=== PATIENT | female | born 1975 | race Two or more races ===

== ENCOUNTER → 2016-06-06 | Outpatient (CLI) | payer BC ==
[~2016-06-06] MED LIST: AMLO5TAB2 PO; METO25TA5 PO; MYCO500T3 PO; SIMV-8 PO; TACR1CAP4 PO
[2016-06-06 16:37] LABS: Basophils # (auto) 0 uL; DEFINITIVE VIEW TRANSMISSION; Eosinophils # (auto) 0 uL; Eosinophils % (auto) 0.2 % (0.0-7.0); Hematocrit 30.5 % (36.0-46.0); Lymphocytes % (auto) 9.6 % (10.0-50.0); Mean Corpuscular Hgb Conc. 32.9 g/dL (32.0-36.0); Mean Corpuscular Volume 78.9 fL (80.0-100.0); Mean Platelet Volume 10.3 fL (7.4-10.4); Monocytes % (auto) 10.2 % (0.0-12.0); Neutrophils # (auto) 8.2 uL; Platelet Count (auto) 245 10^3/uL (140-450); White Blood Cell 10.2 10^3/uL (4.4-10.8)
[2016-06-06 16:57] LABS: Urine Bilirubin Negative (Negative); Urine Blood TRACE /uL (Negative); Urine Color Yellow (Yellow); Urine Glucose Normal (Normal); Urine Ketone Negative (Negative); Urine RBC 2 /hpf (0 - 4); Urine Squamous Epithelial Cell FEW /hpf (<5); Urine Urobilinogen Normal (Negative); Urine pH 6.5 (5.0-8.0)
[2016-06-06 16:59] LABS: Urine Nitrite POSITIVE (Negative)
[2016-06-06 17:01] LABS: BUN/Creatinine Ratio 12.9; Calcium 8.1 mg/dL (8.5-10.1); Potassium 3.6 mmol/L (3.5-5.1)
== END | disposition home or self-care (01) ==
LOC: LAB 16:23
PROVIDERS: ATTEND Internal Medicine
DX: N39.0 Urinary tract infection, site not specified (principal)
CPT/HCPCS: 36415; 80048; 81001; 85025; 87086

== ENCOUNTER 2016-06-09 09:43 | Inpatient (IN) | payer BC ==
[~2016-06-09] VITALS: Ht 154.9 cm; Wt 64.7 kg
[2016-06-09 11:19] LABS: Basophils # (auto) 0 uL; Basophils % (auto) 0.3 % (0.0-2.0); DEFINITIVE VIEW TRANSMISSION; Eosinophils # (auto) 0.1 uL; Eosinophils % (auto) 2.4 % (0.0-7.0); Hematocrit 31.7 % (36.0-46.0); Hemoglobin 10.3 g/dL (12.2-16.2); Lymphocytes % (auto) 17.8 % (10.0-50.0); Mean Corpuscular Hemoglobin 25.7 pg (28.0-32.0); Mean Corpuscular Hgb Conc. 32.6 g/dL (32.0-36.0); Mean Corpuscular Volume 78.9 fL (80.0-100.0); Mean Platelet Volume 11.3 fL (7.4-10.4); Monocytes # (auto) 0.4 uL; Monocytes % (auto) 7.9 % (0.0-12.0); Neutrophils % (auto) 71.6 % (37.0-80.0); Platelet Count (auto) 226 10^3/uL (140-450); SUSPECT VIEW TRANSMISSION; White Blood Cell 5.6 10^3/uL (4.4-10.8)
[2016-06-09 11:27] LABS: Albumin 3.4 g/dL (3.4-5.0); BUN/Creatinine Ratio 14.9; Bilirubin, Total 0.2 mg/dL (0.2-1.0); Calcium 8.8 mg/dL (8.5-10.1); Potassium 3.7 mmol/L (3.5-5.1); Total Protein 7.9 g/dL (6.4-8.2)
[2016-06-09] MEDS ORDERED: ERTAPENEM SOD INJ 1 GM in SODIUM CHL 0.9% 50 ML IV ONE (11:30)
[2016-06-09 12:08] VITALS: BP 139/86
[2016-06-09 13:34] LABS: Urine RBC None Seen /hpf (0 - 4)
[2016-06-09 14:10] LABS: Urine Bilirubin Negative (Negative); Urine Blood Negative /uL (Negative); Urine Glucose Normal (Normal); Urine Ketone Negative (Negative); Urine Nitrite Negative (Negative); Urine Squamous Epithelial Cell FEW /hpf (<5); Urine Urobilinogen Normal (Negative); Urine pH 6.5 (5.0-8.0)
[2016-06-09] MEDS: SODIUM CHLORIDE 0.9% 1,000 ML IV SCH (14:16)
[2016-06-09 14:39] LABS: Urine Color Straw (Yellow)
[2016-06-09] MEDS ORDERED: LIDOCAINE 1% HCL (LOCAL ANESTH.) INJ 20ML MDV ONE (15:32)
[2016-06-09 16:45] VITALS: BP 128/78
[2016-06-09] MEDS ORDERED: LIDOCAINE 1% HCL (LOCAL ANESTH.) INJ 20ML MDV ID ONE (17:15)
[2016-06-09 21:46] VITALS: BP 110/71
[2016-06-09] MEDS: SODIUM CHLOR 0.9% PF (SALINE LOCK) 10ML VIAL IV SCH (21:48)
[2016-06-09] MEDS: TACROLIMUS 1 MG CAP PO SCH (21:48)
[2016-06-09] MEDS: MYCOPHENOLATE 500 MG TAB PO SCH (21:48)
[2016-06-10] MEDS: SODIUM CHLORIDE 0.9% 1,000 ML IV SCH (01:08)
[2016-06-10 05:12] VITALS: BP 108/66
[2016-06-10 05:40] LABS: BUN/Creatinine Ratio 17.2; Calcium 7.7 mg/dL (8.5-10.1); Potassium 4.3 mmol/L (3.5-5.1)
[2016-06-10 09:00] VITALS: BP 123/71
[2016-06-10] MEDS: TACROLIMUS 1 MG CAP PO SCH (09:56)
[2016-06-10] MEDS: SODIUM CHLOR 0.9% PF (SALINE LOCK) 10ML VIAL IV SCH (09:56)
[2016-06-10] MEDS: MYCOPHENOLATE 500 MG TAB PO SCH (09:56)
[2016-06-10] MEDS ORDERED: ERTAPENEM SOD INJ 1 GM in SODIUM CHL 0.9% 50 ML IV SCH (10:00)
[2016-06-10 10:59] VITALS: BP 123/71
== END 2016-06-10 12:45 | disposition home health service (06) | DRG 690 ==
LOC: ER 09:47 → EAST 09:48
PROVIDERS: ADMIT Internal Medicine; ATTEND Internal Medicine
PROC: 02HV33Z Insertion of Infusion Device into Superior Vena Cava, Percutaneous Approach (ICD-10-PCS; principal; 2016-06-09)
DX: N39.0 Urinary tract infection, site not specified (principal); Z94.0 Kidney transplant status; B96.20 Unspecified Escherichia coli [E. coli] as the cause of diseases classified elsewhere; N18.3 Chronic kidney disease, stage 3 (moderate); Z16.12 Extended spectrum beta lactamase (ESBL) resistance
CPT/HCPCS: 36415; 36569; 71010; 80048; 80053; 81001; 83605; 84702; 85025; 87040; J1335; J2001; J7507; J7517

== ENCOUNTER → 2016-06-15 | Outpatient (CLI) | payer BC ==
[2016-06-15 13:05] LABS: Urine RBC None Seen /hpf (0 - 4)
[2016-06-15 13:08] LABS: Basophils # (auto) 0 uL; Basophils % (auto) 0.6 % (0.0-2.0); DEFINITIVE VIEW TRANSMISSION; Eosinophils # (auto) 0.1 uL; Eosinophils % (auto) 1.6 % (0.0-7.0); Hemoglobin 10.5 g/dL (12.2-16.2); Lymphocytes # (auto) 1.6 uL; Mean Corpuscular Hemoglobin 25.4 pg (28.0-32.0); Mean Corpuscular Hgb Conc. 32.7 g/dL (32.0-36.0); Mean Corpuscular Volume 77.6 fL (80.0-100.0); Mean Platelet Volume 10.4 fL (7.4-10.4); Monocytes # (auto) 0.7 uL; Monocytes % (auto) 7.7 % (0.0-12.0); Neutrophils # (auto) 6.2 uL; Neutrophils % (auto) 72.1 % (37.0-80.0); Platelet Count (auto) 352 10^3/uL (140-450); Red Cell Distribution Width 15.8 % (11.6-16.0); White Blood Cell 8.6 10^3/uL (4.4-10.8)
[2016-06-15 13:29] LABS: BUN/Creatinine Ratio 17.1; Calcium 9.1 mg/dL (8.5-10.1)
[2016-06-15 13:33] LABS: Urine Bilirubin Negative (Negative); Urine Blood Negative /uL (Negative); Urine Glucose Normal (Normal); Urine Ketone Negative (Negative); Urine Nitrite Negative (Negative); Urine Urobilinogen Normal (Negative)
[2016-06-15 13:34] LABS: Urine Color Straw (Yellow)
== END | disposition home or self-care (01) ==
LOC: LAB 11:53
PROVIDERS: ATTEND Internal Medicine
DX: G71.0 Muscular dystrophy (principal)
CPT/HCPCS: 36415; 80048; 81001; 85025; 87086

== ENCOUNTER → 2016-06-27 | Outpatient (CLI) | payer BC ==
[2016-06-27 09:40] LABS: Urine Bilirubin Negative (Negative); Urine Blood Negative /uL (Negative); Urine Color Yellow (Yellow); Urine Glucose Normal (Normal); Urine Ketone Negative (Negative); Urine Nitrite Negative (Negative); Urine RBC 1 /hpf (0 - 4); Urine Squamous Epithelial Cell FEW /hpf (<5); Urine Urobilinogen Normal (Negative); Urine pH 5.5 (5.0-8.0)
== END | disposition home or self-care (01) ==
LOC: LAB 08:19
PROVIDERS: ATTEND Internal Medicine
DX: N39.0 Urinary tract infection, site not specified (principal)
CPT/HCPCS: 81001; 87086

== ENCOUNTER → 2017-06-05 | Outpatient (CLI) | payer BC ==
[2017-06-05 12:36] LABS: Basophils # (auto) 0 uL; Lymphocytes # (auto) 1.6 uL; Monocytes # (auto) 0.5 uL; Neutrophils # (auto) 4.2 uL; Nucleated Red Blood Cells % 0.1 %
[2017-06-05 12:38] LABS: Basophils % (auto) 0.6 % (0.0-2.0); Eosinophils # (auto) 0.1 uL; Eosinophils % (auto) 2.2 % (0.0-7.0); Hematocrit 25.2 % (36.0-46.0); Hemoglobin 7.9 g/dL (12.2-16.2); Lymphocytes % (auto) 25.1 % (10.0-50.0); Mean Corpuscular Hemoglobin 23.3 pg (28.0-32.0); Mean Corpuscular Hgb Conc. 31.4 g/dL (32.0-36.0); Mean Corpuscular Volume 74.1 fL (80.0-100.0); Monocytes % (auto) 8.4 % (0.0-12.0); Neutrophils % (auto) 63.7 % (37.0-80.0); Platelet Count (auto) 311 10^3/uL (140-450); Red Blood Cells 3.41 10^6/uL (4.0-5.20); Red Cell Distribution Width 16.2 % (11.8-14.3); White Blood Cell 6.5 10^3/uL (4.4-10.8)
[2017-06-05 12:48] LABS: Urine Bacteria NONE SEEN /hpf (None Seen); Urine Blood Negative /uL (Negative); Urine Hyaline Cast FEW /lpf (0 - 2); Urine Mucus FEW (None Seen); Urine Specific Gravity 1.008 (1.001-1.035); Urine WBC <1 /hpf (0 - 5)
[2017-06-05 13:05] LABS: Albumin 3.9 g/dL (3.4-5.0); BUN/Creatinine Ratio 20.7; Bilirubin, Total 0.4 mg/dL (0.2-1.0); Calcium 8.5 mg/dL (8.5-10.1); Phosphorus 2.4 mg/dL (2.5-4.90); Potassium 3.8 mmol/L (3.5-5.1); Uric Acid 4.7 mg/dL (2.6-6.0)
== END | disposition home or self-care (01) ==
LOC: LAB 11:02
PROVIDERS: ATTEND Internal Medicine Nephrology
DX: N18.3 Chronic kidney disease, stage 3 (moderate) (principal); D63.1 Anemia in chronic kidney disease; E21.3 Hyperparathyroidism, unspecified; E78.5 Hyperlipidemia, unspecified; M10.9 Gout, unspecified; R80.9 Proteinuria, unspecified; E55.9 Vitamin D deficiency, unspecified; Z94.0 Kidney transplant status
CPT/HCPCS: 36415; 80053; 80069; 80197; 81001; 82306; 82570; 83970; 84156; 84550; 85025

== ENCOUNTER 2017-09-08 19:16 | Emergency (ER) | payer BC ==
[~2017-09-08] VITALS: Ht 152.4 cm; Wt 63.0 kg
[2017-09-08 19:26] VITALS: BP 136/92
== END 2017-09-08 21:54 | disposition home or self-care (01) ==
LOC: ER 19:16
DX: S33.5XXA Sprain of ligaments of lumbar spine, initial encounter (principal); S13.9XXA Sprain of joints and ligaments of unspecified parts of neck, initial encounter; N18.9 Chronic kidney disease, unspecified; Z94.0 Kidney transplant status; V43.52XA Car driver injured in collision with other type car in traffic accident, initial encounter; Y93.89 Activity, other specified; Y99.8 Other external cause status; Y92.410 Unspecified street and highway as the place of occurrence of the external cause
CPT/HCPCS: 72125; 72128; 72131; 73120

== ENCOUNTER 2018-02-21 19:40 | Emergency (ER) | payer BC ==
[~2018-02-21] VITALS: Ht 154.9 cm; Wt 63.5 kg
[~2018-02-21 19:40] MED LIST changes: +AMLO5TAB13 PO; -AMLO5TAB2 PO
[2018-02-21 19:49] VITALS: BP 167/95
[2018-02-21 20:54] LABS: Basophils # (auto) 0.1 uL; Basophils % (auto) 0.7 % (0.0-2.0); Eosinophils # (auto) 0.1 uL; Eosinophils % (auto) 1.3 % (0.0-7.0); Hematocrit 34.1 % (36.0-46.0); Hemoglobin 11.1 g/dL (12.2-16.2); Lymphocytes # (auto) 1.6 uL; Lymphocytes % (auto) 18.8 % (10.0-50.0); Mean Corpuscular Hemoglobin 29.1 pg (28.0-32.0); Mean Corpuscular Hgb Conc. 32.7 g/dL (32.0-36.0); Mean Corpuscular Volume 89.1 fL (80.0-100.0); Monocytes # (auto) 0.6 uL; Monocytes % (auto) 6.9 % (0.0-12.0); Neutrophils # (auto) 6.1 uL; Neutrophils % (auto) 72.3 % (37.0-80.0); Platelet Count (auto) 342 10^3/uL (140-450); Red Blood Cells 3.82 10^6/uL (4.0-5.20); Red Cell Distribution Width 12.6 % (11.8-14.3); White Blood Cell 8.5 10^3/uL (4.4-10.8)
[2018-02-21 21:08] LABS: Albumin 3.8 g/dL (3.4-5.0); Calcium 8.5 mg/dL (8.5-10.1); Potassium 3.9 mmol/L (3.5-5.1)
[2018-02-21 21:11] LABS: BUN/Creatinine Ratio 22.6; Bilirubin, Total 0.2 mg/dL (0.2-1.0); Total Protein 8.1 g/dL (6.4-8.2)
[2018-02-21 21:46] LABS: Urine Bacteria FEW /hpf (None Seen); Urine Blood Negative /uL (Negative); Urine Specific Gravity 1.007 (1.001-1.035); Urine WBC 1 /hpf (0 - 5)
== END 2018-02-21 21:38 | disposition home or self-care (01) ==
LOC: ER 19:40 → EEVIPCON 19:40 → ER 21:38
DX: R22.1 Localized swelling, mass and lump, neck (principal); N18.9 Chronic kidney disease, unspecified
CPT/HCPCS: 36415; 76536; 80053; 81001; 84443; 85025; 94761

== ENCOUNTER → 2018-03-20 | Outpatient (CLI) | payer BC | END | disposition home or self-care (01) | LOC: LAB 09:58 | PROVIDERS: ATTEND Internal Medicine | DX: E04.1 Nontoxic single thyroid nodule (principal) | CPT/HCPCS: 86376; 86800 ==

== ENCOUNTER → 2018-03-20 | Outpatient (CLI) | payer BC | END | disposition home or self-care (01) | LOC: XYW 10:17 | PROVIDERS: ATTEND Internal Medicine | DX: E04.1 Nontoxic single thyroid nodule (principal) | CPT/HCPCS: 78014; A9516 ==

== ENCOUNTER → 2018-05-02 | Outpatient (CLI) | payer BC | END | disposition home or self-care (01) | LOC: EEVIPCON → XYW 08:50 | PROVIDERS: ATTEND Surgery | DX: Z01.818 Encounter for other preprocedural examination (principal); Z94.0 Kidney transplant status | CPT/HCPCS: 93306 ==

== ENCOUNTER 2018-05-29 06:16 | Inpatient (IN) | payer BC ==
[2018-05-27 11:56] LABS: Basophils # (auto) 0 uL; Basophils % (auto) 0.7 % (0.0-2.0); Eosinophils # (auto) 0.1 uL; Hemoglobin 10.9 g/dL (12.2-16.2); Lymphocytes # (auto) 1.2 uL; Monocytes # (auto) 0.6 uL; White Blood Cell 5.9 10^3/uL (4.4-10.8)
[2018-05-27 11:57] LABS: Eosinophils % (auto) 1.3 % (0.0-7.0); Hematocrit 34.3 % (36.0-46.0); Mean Corpuscular Hemoglobin 26.4 pg (28.0-32.0); Mean Corpuscular Hgb Conc. 31.9 g/dL (32.0-36.0); Mean Corpuscular Volume 82.7 fL (80.0-100.0); Monocytes % (auto) 10.6 % (0.0-12.0); Neutrophils # (auto) 3.9 uL; Neutrophils % (auto) 66.4 % (37.0-80.0); Platelet Count (auto) 307 10^3/uL (140-450); Red Blood Cells 4.15 10^6/uL (4.0-5.20)
[2018-05-27 12:13] LABS: INR 0.94 (0.9-1.15); Partial Thromboplastin Time 28.5 sec (23.78-33.04); Prothrombin Time 10.1 sec (9.27-12.13)
[2018-05-27 12:17] LABS: Urine Bacteria NONE SEEN /hpf (None Seen); Urine Blood Negative /uL (Negative); Urine Specific Gravity 1.013 (1.001-1.035); Urine WBC 1 /hpf (0 - 5)
[2018-05-27 12:20] LABS: Potassium 4.6 mmol/L (3.5-5.1)
[2018-05-27 12:27] LABS: Albumin 4.2 g/dL (3.4-5.0); BUN/Creatinine Ratio 15.3; Bilirubin, Total 0.5 mg/dL (0.2-1.0); Calcium 9.4 mg/dL (8.5-10.1); Total Protein 8.4 g/dL (6.4-8.2)
[~2018-05-29] VITALS: Ht 154.9 cm; Wt 68.8 kg
[~2018-05-29 06:16] MED LIST changes: -AMLO5TAB13 PO; +CHOL500023 PO; -METO25TA5 PO; +MYCO500T PO; -MYCO500T3 PO; -SIMV-8 PO
[2018-05-29] MEDS ORDERED: ceFAZolin 1GM/50ML 50 ML IV ONE (07:00)
[2018-05-29] MEDS ORDERED: ceFAZolin 1GM VL ONE (07:17)
[2018-05-29] MEDS ORDERED: MEPERIDINE HCL (50 MG/ML) 1 ML VIAL ONE (07:41)
[2018-05-29] MEDS ORDERED: MIDAZOLAM HCL 1MG/1ML-2 ML VIAL ONE (07:41)
[2018-05-29] MEDS ORDERED: fentaNYL CITRATE 100 MCG/2 ML VL ONE ×2 (07:41→08:31)
[2018-05-29] MEDS ORDERED: ePHEDrine SULFATE 50 MG/ML AMP IV PRN (07:45)
[2018-05-29] MEDS ORDERED: HYDROmorphone HCL 2 MG/ML VL IV PRN ×2 (07:45→13:00)
[2018-05-29] MEDS ORDERED: MIDAZOLAM HCL 1MG/1ML-2 ML VIAL IV PRN (07:45)
[2018-05-29] MEDS ORDERED: MORPHINE SULFATE 4 MG/ML SYR/VIAL IV PRN ×2 (07:45→13:15)
[2018-05-29] MEDS ORDERED: LABETALOL HCL 5 MG/ML 4ML SYRINGE IV PRN (07:45)
[2018-05-29] MEDS ORDERED: ONDANSETRON HCL 4 MG/2 ML VIAL IV ONE (07:45)
[2018-05-29] MEDS ORDERED: KETOROLAC TROMETH 30 MG/ML 1ML VIAL IV ONE (07:45)
[2018-05-29] MEDS ORDERED: DEXAMETHASONE SOD PHOS 10MG/1ML VIAL INJ ONE (07:48)
[2018-05-29] MEDS ORDERED: PROPOFOL 10 MG/ML 20 ML IV ONE (07:48)
[2018-05-29] MEDS ORDERED: MORPHINE SULFATE 4 MG/ML SYR/VIAL IV ONE (08:00)
[2018-05-29] MEDS: BUPIVACAINE W/ EPINEPH 0.25% INJ 50ML MDV ONE (08:14)
[2018-05-29] MEDS ORDERED: ROCURONIUM 10MG/ML 10ML VIAL IV ONE (08:47)
[2018-05-29] MEDS ORDERED: ONDANSETRON HCL 4 MG/2 ML VIAL ONE (08:51)
[2018-05-29] MEDS ORDERED: LABETALOL HCL 5 MG/ML 4ML SYRINGE IV ONE (10:54)
[2018-05-29] MEDS ORDERED: ONDANSETRON HCL 4 MG/2 ML VIAL IV PRN (13:00)
[2018-05-29] MEDS ORDERED: NITROGLYCERIN 0.4 MG SL TAB SL PRN (13:15)
[2018-05-29] MEDS ORDERED: LABETALOL HCL 5 MG/ML ML 20ML VIAL IV PRN (13:15)
--- NOTE | 2018-05-29 19:35 | NUR ---
Admit to [facility] admitted to [facility] from PACU post thyroidectomy via bed on biofuels product manager, and portable 02. Patient transferred to bed, connected to unit monitoring and oxygen, and weighed by bedscale. Patient has clean, dry and intact dressing in the anterior neck with steri-strip, alert and oriented to Rufina Davila, primary RN, unit, room, bed, and unit policies regarding patient care and visiting hours. IVF in the right forearm patent and intact. All questions and concerns addressed, patient verbalized understanding. Safety and comfort provided. NOTE:IVF in the right forearm patent and intact, MRSA swab in the nose done and sent to lab.
[2018-05-29] MEDS ORDERED: THROAT LOZENGES(CEPASTAT) MT PRN (22:00)
[2018-05-29] MEDS: ceFAZolin 1GM/50ML 50 ML IV SCH ×2 (22:00→22:17)
[2018-05-29] MEDS: TACROLIMUS 1 MG CAP PO SCH (22:18)
[2018-05-29] MEDS: MYCOPHENOLATE 500 MG TAB PO SCH (22:19)
[2018-05-29] MEDS: D5W/SOD CHL 0.45%/KCL 20MEQ 1,000 ML IV SCH (23:30)
[2018-05-29 23:38] VITALS: BP 144/98
[2018-05-30] MEDS: HYDROcodone-ACET 7.5/325MG TAB PO PRN ×2 (02:00→08:25)
--- NOTE | 2018-05-30 02:00 | NUR ---
PAIN: Pt states having pain at incision site and in throat at level 6/10. Offered pt pain med and pt agreed to take Columbus. Pt medicated w/ Columbus 7.5/325mg as per order. To continue to monitor pt.
--- NOTE | 2018-05-30 05:00 | NUR ---
MORNING CARE ASSISTED WITH PARTIAL SPONGE BATH AND PT DID ORAL CARE. PARTIAL LINEN AND GOWN CHANGED.
[2018-05-30 05:01] LABS: Basophils # (auto) 0 uL; Basophils % (auto) 0.1 % (0.0-2.0); Eosinophils # (auto) 0 uL; Hematocrit 25.9 % (36.0-46.0); Hemoglobin 8.6 g/dL (12.2-16.2); Lymphocytes # (auto) 1.3 uL; Lymphocytes % (auto) 13.4 % (10.0-50.0); Mean Corpuscular Hemoglobin 27.3 pg (28.0-32.0); Mean Corpuscular Hgb Conc. 33.4 g/dL (32.0-36.0); Monocytes # (auto) 1.1 uL; Monocytes % (auto) 11.8 % (0.0-12.0); Neutrophils # (auto) 7.1 uL; Neutrophils % (auto) 74.7 % (37.0-80.0); Platelet Count (auto) 239 10^3/uL (140-450); Red Blood Cells 3.16 10^6/uL (4.0-5.20); Red Cell Distribution Width 15.1 % (11.8-14.3); White Blood Cell 9.5 10^3/uL (4.4-10.8)
[2018-05-30 05:23] LABS: Calcium 7.8 mg/dL (8.5-10.1); Potassium 4.4 mmol/L (3.5-5.1)
[2018-05-30 05:26] LABS: BUN/Creatinine Ratio 16.4; Bilirubin, Total 0.3 mg/dL (0.2-1.0)
[2018-05-30] MEDS: ceFAZolin 1GM/50ML 50 ML IV SCH ×2 (06:20→14:00)
--- NOTE | 2018-05-30 07:10 | NUR ---
CLOSING SHIFT NOTE RESTING ON BED WITH NO SIGNS OF DISTRESS. REPORT GIVEN TO J LUIS GRIFFITH.
[2018-05-30 08:00] VITALS: BP 129/98
[2018-05-30] MEDS ORDERED: PNEUMOCOCCAL VACC POLYS 25 MCG/0.5 ML VIAL IM ONE (08:00)
--- NOTE | 2018-05-30 08:00 | NUR ---
REPORT REPORT RECEIVED FROM [facility] SHIFT NURSE. PT SITTING UP IN BED, NO DISTRESS NOTED, ON ROOM AIR. INCISION TO ANTERIOR NECK STERI-STRIPS NOTED INTACT. VOICE SLIGHTLY COURSE. PT STATING SHE HAS PAIN 5/10 TO INCISIONAL AREA. PRN NORCO GIVEN WITHOUT ANY DIFFICULTY SWALLOWING. SEE PHYSICAL ASSESSMENT.
[2018-05-30] MEDS: BUPIVACAINE W/ EPINEPH 0.25% INJ 50ML MDV ONE (08:15)
[2018-05-30] MEDS: D5W/SOD CHL 0.45%/KCL 20MEQ 1,000 ML IV SCH (08:18)
--- NOTE | 2018-05-30 09:00 | NUR ---
INCENTIVE SPIROMETER PATIENT PROVIDED WITH I.S, EDUCATED ON PROPER USE AND REASONING. PT VERBALIZED UNDERSTANDING AND WAS ABLE TO PERFORM PROPER RETURN DEMONSTRATION. PT REACHING 1500ML DURING INSPIRATION.
[2018-05-30] MEDS: MYCOPHENOLATE 500 MG TAB PO SCH (10:45)
[2018-05-30] MEDS: TACROLIMUS 1 MG CAP PO SCH (10:45)
--- NOTE | 2018-05-30 11:00 | NUR ---
TRANSFER TO BED 207 REPORT GIVEN TO NOC NURSE. UPDATED ON PATIENT STATUS AND PLAN OF CARE. PT TAKEN TO ROOM 207 VIA AMBULATION WITHOUT DIFFICULTY WITH PRIMARY RN. ALL BELONGINGS IN PLACE. FAMILY AT BEDSIDE AWARE.
--- NOTE | 2018-05-30 11:05 | NUR ---
TELEMETRY DOWNGRADE TRANSFER FROM [facility] admitted to Telemetry unit after SBAR received. Patient oriented to EVELIA PANG RN primary RN, unit, room, bed, and unit policies regarding patient care and visiting hours. Patient now on continuous telemetry monitoring, tele box # and telemetry reading on arrival to unit is []. Patient placed on bedside oxygen, weighed by bedscale and encouraged to call if they need something. All questions and concerns addressed, patient verbalized understanding. Note: [] Addendum: 05/30/18 at 1202 by EVELIA PANG RN RN TELEMETRY DOWNGRADE TRANSFER FROM [facility] admitted to Telemetry unit after SBAR received. Patient oriented to EVELIA PANG RN primary RN, unit, room, bed, and unit policies regarding patient care and visiting hours. Patient now on continuous telemetry monitoring, telemetry reading on arrival to unit is NORMAL SINUS RHYTHM of 85 bpm. Patient encouraged to call if they need something. All questions and concerns addressed, patient verbalized understanding.
--- NOTE | 2018-05-30 11:30 | NUR ---
DR. FRAZIER AT BEDSIDE. NEW ORDERS RECEIVED.
[2018-05-30 12:17] VITALS: BP 148/99
--- NOTE | 2018-05-30 13:55 | NUR ---
Discharge instructions given as ordered. Encourage to follow up with PMD as instructed. All questions and concerns addressed. Patient verbalized understanding. Medication reconciliation form completed and copy given to patient. IV removed with catheter intact, pressure dressing applied. Telemetry unit returned to [facility]. Patient taken down stairs to pharmacy via wheelchair with all personal belongings, accompanied by staff and family member. No distress noted at time of departure.
== END 2018-05-30 13:45 | disposition home or self-care (01) | DRG 626 ==
LOC: SUR 06:16 → DOU IN ICU 20:01 → TELE-CENTR 05-30 11:00
PROVIDERS: ADMIT Surgery; ATTEND Internal Medicine
PROC: 0GBH0ZZ Excision of Right Thyroid Gland Lobe, Open Approach (ICD-10-PCS; 2018-05-29)
PROC: 0GBG0ZZ Excision of Left Thyroid Gland Lobe, Open Approach (ICD-10-PCS; principal; 2018-05-29 07:35)
DX: E07.9 Disorder of thyroid, unspecified (principal); Z94.0 Kidney transplant status; I10 Essential (primary) hypertension; Z80.8 Family history of malignant neoplasm of other organs or systems; Z23 Encounter for immunization; Z90.89 Acquired absence of other organs
CPT/HCPCS: 36415; 71045; 80053; 81001; 84702; 85025; 85610; 85730; 87081; G0378; J0690; J1100; J1885; J2250; J2405; J2704; J3490; J7507; J7517

== ENCOUNTER → 2018-06-25 | Outpatient (CLI) | payer BC ==
[2018-06-25 10:02] LABS: Basophils # (auto) 0 uL; Eosinophils # (auto) 0.2 uL; Hemoglobin 11.1 g/dL (12.2-16.2); Monocytes # (auto) 0.4 uL; Nucleated Red Blood Cells % 0.1 %
[2018-06-25 10:05] LABS: Basophils % (auto) 0.8 % (0.0-2.0); Eosinophils % (auto) 3.8 % (0.0-7.0); Hematocrit 34.1 % (36.0-46.0); Lymphocytes % (auto) 21.1 % (10.0-50.0); Mean Corpuscular Hemoglobin 27.1 pg (28.0-32.0); Mean Corpuscular Hgb Conc. 32.5 g/dL (32.0-36.0); Mean Corpuscular Volume 83.3 fL (80.0-100.0); Monocytes % (auto) 9.5 % (0.0-12.0); Neutrophils % (auto) 64.8 % (37.0-80.0); Platelet Count (auto) 275 10^3/uL (140-450); Red Cell Distribution Width 16.4 % (11.8-14.3); White Blood Cell 4.6 10^3/uL (4.4-10.8)
[2018-06-25 10:26] LABS: Albumin 3.7 g/dL (3.4-5.0); Calcium 8.6 mg/dL (8.5-10.1); Potassium 3.9 mmol/L (3.5-5.1)
[2018-06-25 10:30] LABS: Bilirubin, Total 0.3 mg/dL (0.2-1.0); Total Protein 7.8 g/dL (6.4-8.2)
== END | disposition home or self-care (01) ==
LOC: LAB 09:34
PROVIDERS: ATTEND Internal Medicine
DX: I10 Essential (primary) hypertension (principal); E07.9 Disorder of thyroid, unspecified; M32.0 Drug-induced systemic lupus erythematosus; Z98.890 Other specified postprocedural states
CPT/HCPCS: 36415; 80053; 82306; 83970; 84443; 85025

== ENCOUNTER → 2018-08-07 | Outpatient (CLI) | payer BC | END | disposition home or self-care (01) | LOC: LAB 10:00 | PROVIDERS: ATTEND Internal Medicine | DX: E03.9 Hypothyroidism, unspecified (principal) | CPT/HCPCS: 36415; 84443 ==

== ENCOUNTER → 2019-02-25 | Outpatient (CLI) | payer BC ==
[2019-02-25 09:26] LABS: Urine Blood Negative /uL (Negative); Urine Specific Gravity 1.019 (1.001-1.035)
[2019-02-25 09:27] LABS: Basophils # (auto) 0.1 uL; Basophils % (auto) 0.8 % (0.0-2.0); Eosinophils # (auto) 0.1 uL; Eosinophils % (auto) 0.8 % (0.0-7.0); Hematocrit 36.7 % (36.0-46.0); Hemoglobin 12.1 g/dL (12.2-16.2); Lymphocytes # (auto) 1.1 uL; Lymphocytes % (auto) 16.3 % (10.0-50.0); Mean Corpuscular Hemoglobin 28.7 pg (28.0-32.0); Monocytes # (auto) 0.7 uL; Monocytes % (auto) 9.9 % (0.0-12.0); Neutrophils # (auto) 4.8 uL; Neutrophils % (auto) 72.2 % (37.0-80.0); Nucleated Red Blood Cells % 0.1 %; Platelet Count (auto) 281 10^3/uL (140-450); Red Blood Cells 4.22 10^6/uL (4.0-5.20); Red Cell Distribution Width 14.1 % (11.8-14.3); White Blood Cell 6.6 10^3/uL (4.4-10.8)
[2019-02-25 09:50] LABS: Albumin 4.6 g/dL (3.4-5.0); Calcium 9.5 mg/dL (8.5-10.1); Phosphorus 3.3 mg/dL (2.5-4.90); Uric Acid 5.6 mg/dL (2.6-6.0)
[2019-02-25 09:51] LABS: Creatinine, Urine 214 mg/dL (30.0-125.0); Protein, Urine 236.6 mg/dL (0.0-11.9)
== END | disposition home or self-care (01) ==
LOC: LAB 09:05
PROVIDERS: ATTEND Internal Medicine Nephrology
DX: I12.9 Hypertensive chronic kidney disease with stage 1 through stage 4 chronic kidney disease, or unspecified chronic kidney disease (principal); N39.0 Urinary tract infection, site not specified; N18.2 Chronic kidney disease, stage 2 (mild); F17.200 Nicotine dependence, unspecified, uncomplicated; D63.1 Anemia in chronic kidney disease; Z94.0 Kidney transplant status
CPT/HCPCS: 36415; 80048; 80069; 80197; 81003; 82306; 82570; 83970; 84156; 84443; 84550; 85025

== ENCOUNTER → 2019-03-26 | Outpatient (CLI) | payer BC ==
[2019-03-26 09:44] LABS: Urine Blood Negative /uL (Negative); Urine Specific Gravity 1.013 (1.001-1.035)
[2019-03-26 10:40] LABS: Creatinine, Urine 80 mg/dL (30.0-125.0); Protein, Urine 65.9 mg/dL (0.0-11.9)
[2019-03-26 10:42] LABS: Potassium 4.3 mmol/L (3.5-5.1)
[2019-03-26 10:47] LABS: Albumin 3.6 g/dL (3.4-5.0); BUN/Creatinine Ratio 18.4; Calcium 8.6 mg/dL (8.5-10.1); Phosphorus 3.3 mg/dL (2.5-4.90)
== END | disposition home or self-care (01) ==
LOC: LAB 09:12
PROVIDERS: ATTEND Internal Medicine Nephrology
DX: N18.3 Chronic kidney disease, stage 3 (moderate) (principal); R80.9 Proteinuria, unspecified; Z94.0 Kidney transplant status
CPT/HCPCS: 36415; 80069; 80197; 81003; 82570; 84156

== ENCOUNTER → 2019-10-01 | Outpatient (CLI) | payer BC ==
[2019-10-01 10:22] LABS: Basophils # (auto) 0.1 10 ^3/uL (0-0.2); Basophils % (auto) 1.1 % (0.0-2.0); Eosinophils # (auto) 0.3 10 ^3/uL (0-0.8); Hematocrit 33.4 % (36.0-46.0); Hemoglobin 10.7 g/dL (12.2-16.2); Lymphocytes % (auto) 19.1 % (10.0-50.0); Mean Corpuscular Hemoglobin 27.2 pg (28.0-32.0); Mean Corpuscular Hgb Conc. 32.1 g/dL (32.0-36.0); Mean Corpuscular Volume 84.8 fL (80.0-100.0); Monocytes # (auto) 0.5 10 ^3/uL (0-1.3); Monocytes % (auto) 9.4 % (0.0-12.0); Neutrophils # (auto) 3.4 10 ^3/uL (1.6-8.6); Neutrophils % (auto) 65.4 % (37.0-80.0); Platelet Count (auto) 300 10^3/uL (140-450); Red Blood Cells 3.94 10^6/uL (4.0-5.20); White Blood Cell 5.3 10^3/uL (4.4-10.8)
[2019-10-01 10:25] LABS: Urine Bacteria NONE SEEN /hpf (None Seen); Urine Blood Negative /uL (Negative); Urine Specific Gravity 1.019 (1.001-1.035); Urine WBC 1 /hpf (0 - 5)
[2019-10-01 10:44] LABS: Albumin 3.8 g/dL (3.4-5.0); BUN/Creatinine Ratio 21.5; Calcium 8.6 mg/dL (8.5-10.1); Phosphorus 3.1 mg/dL (2.5-4.90); Potassium 4.3 mmol/L (3.5-5.1); Protein, Urine 82.6 mg/dL (0.0-11.9); Uric Acid 5.6 mg/dL (2.6-6.0)
== END | disposition home or self-care (01) ==
LOC: LAB 09:48
PROVIDERS: ATTEND Internal Medicine Nephrology
DX: N18.2 Chronic kidney disease, stage 2 (mild) (principal); D63.1 Anemia in chronic kidney disease; N39.0 Urinary tract infection, site not specified; M10.9 Gout, unspecified; E21.3 Hyperparathyroidism, unspecified; R80.9 Proteinuria, unspecified; Z94.0 Kidney transplant status
CPT/HCPCS: 36415; 80069; 80197; 81001; 82570; 83970; 84156; 84443; 84550; 85025

== ENCOUNTER 2019-10-16 06:29 | Inpatient (IN) | payer BC ==
[~2019-10-16] VITALS: Ht 154.9 cm; Wt 67.0 kg
--- NOTE | 2019-10-16 08:07 | NUR ---
MS admit from ER [facility]ISS[facility] admitted to tele/MS after SBAR received. Patient oriented to Mounika Robb, primary RN, unit, room, bed, and unit policies regarding patient care and visiting hours. Patient weighed by bedscale and encouraged to call if they need something. All questions and concerns addressed, patient verbalized understanding. Note:
[2019-10-16 09:35] VITALS: BP 120/68
--- NOTE | 2019-10-16 09:45 | NUR ---
Midline Placement: Patient educated on need for midline placement. All risks and benefits explained and all questions and concerns addresses prior to procedure. 18g/10cm midline inserted via left cephalic vein using Ultrasound. Sterile technique utilized. Blood return obtained from lumen and flushed easily with NS using proper technique. Midline secured with saline lock; biodisc and occlusive dressing applied. Primary RN notified. Midline lot #[id number]
[2019-10-16] MEDS ORDERED: ACETAMINOPHEN 500 MG TAB PO PRN (11:00)
[2019-10-16] MEDS ORDERED: ERTAPENEM SOD INJ 1 GM in SODIUM CHL 0.9% 50 ML IV ONE (11:00)
[2019-10-16 11:21] VITALS: BP 120/68
[2019-10-16 12:12] LABS: Urine Bacteria FEW /hpf (None Seen); Urine Blood 1+ /uL (Negative); Urine Specific Gravity 1.013 (1.001-1.035); Urine WBC 651 /hpf (0 - 5); Urine WBC Clumps PRESENT /hpf (None Seen)
[2019-10-16 12:20] LABS: Hematocrit 24.9 % (36.0-46.0); Mean Corpuscular Hemoglobin 27.4 pg (28.0-32.0); Mean Corpuscular Hgb Conc. 32.1 g/dL (32.0-36.0); Mean Corpuscular Volume 85.5 fL (80.0-100.0); Platelet Count (auto) 202 10^3/uL (140-450); Red Blood Cells 2.91 10^6/uL (4.0-5.20); Red Cell Distribution Width 15.3 % (11.8-14.3); White Blood Cell 10.8 10^3/uL (4.4-10.8)
[2019-10-16 12:27] LABS: Basophils % (manual) 0 (0.0-2.0); Blast Cells 0; Eosinophils % (manual) 0 (0-7); Metamyelocytes % 0; Myelocytes % 0; Promyelocytes % 0; Reactive Lymphocytes 0
[2019-10-16 12:33] LABS: INR 1.07 (0.9-1.15); Partial Thromboplastin Time 33.3 sec (23.64-32.05)
[2019-10-16 12:44] LABS: Albumin 2.5 g/dL (3.4-5.0); Calcium 7.7 mg/dL (8.5-10.1)
[2019-10-16 12:48] LABS: BUN/Creatinine Ratio 12.2; Bilirubin, Total 0.3 mg/dL (0.2-1.0); Total Protein 6.6 g/dL (6.4-8.2)
[2019-10-16 12:56] LABS: Band Neutrophils % (manual) 1; Lymphocytes % (manual) 13 (10.0-50.0); Monocytes % (manual) 8 (0-12)
[2019-10-16] MEDS: ONDANSETRON HCL 4 MG/2 ML VIAL IV PRN ×2 (12:58→21:29)
[2019-10-16] MEDS ORDERED: LEVO75TA6 PO (13:15)
[2019-10-16] MEDS ORDERED: IRBE75TA10 PO (13:15)
[2019-10-16 13:25] VITALS: BP 118/78
[2019-10-16] MEDS: SODIUM CHLORIDE 0.9% 1,000 ML IV SCH ×2 (13:39→21:00)
--- NOTE | 2019-10-16 14:59 | NUR ---
DR. KARIN RINALDI PATIENT HAS TEMP OF 102. COOLING MEASURES IN PLACE. ORDER GIVEN FOR ACETAMINOPHEN 625 MG. FLUID BOLUS ORDERS GIVEN.
[2019-10-16 15:15] LABS: % Iron Saturation 3.6 % (15-50)
[2019-10-16] MEDS: ACETAMINOPHEN 325 MG TAB PO PRN ×2 (15:23→21:29)
[2019-10-16] MEDS ORDERED: SODIUM CHLORIDE 0.9% 500 ML IV ONE (16:00)
[2019-10-16 17:52] VITALS: BP 117/67
--- NOTE | 2019-10-16 19:51 | NUR ---
SPOKE WITH DR. KUNAL SYED REQUESTED INFORMATION REGARDING PATIENT. INFORMATION PROVIDED AND ORDERS TAKEN FROM . ORDERS PLACED AT THIS TIME. WILL CONTINUE TO MONITOR.
--- NOTE | 2019-10-16 20:00 | NUR ---
Opening Shift Note Assumed care of patient, awake and alert. No S/S of distress/SOB or pain. Instructed on POC and to call for assist PRN, will continue to monitor for changes Q1hr and PRN.
[2019-10-16] MEDS: TACROLIMUS 1 MG CAP PO SCH (21:28)
[2019-10-16] MEDS: MYCOPHENOLATE 500 MG TAB PO SCH (21:28)
[2019-10-16 21:54] VITALS: BP 119/80
--- NOTE | 2019-10-16 22:16 | NUR ---
HOSPITALIST PAGED PATIENT RUNNING A FEVER AT 103.0. PULSE 91, RR 18, AND O2 95% ON RA BP AT 119/80. PATIENT ALREADY PROVIDED TYLENOL AND COOLING MEASURES. PATIENT IS RENAL TRANSPLANT PATIENT AND HAS BEEN TOLD NOT TO TAKE IBUPROFEN. WILL AWAIT CALL BACK OR ORDERS. Addendum: 10/16/19 at 2235 by ASHER TODD RN NO NEW ORDERS RECEIVED AT THIS TIME. TOLD TO CONTINUE TYLENOL AND COOLING MEASURES. Addendum: 10/16/19 at 2304 by ASHER TODD RN PER PATIENT, WILLING TO TRY IBUPROFEN.
[2019-10-16] MEDS ORDERED: IBUPROFEN 400 MG TAB PO PRN ×2 (23:15)
[2019-10-17 05:00] VITALS: BP 117/89
[2019-10-17 05:52] LABS: Hemoglobin 7.6 g/dL (12.2-16.2); Mean Corpuscular Hemoglobin 27.2 pg (28.0-32.0)
[2019-10-17 05:53] LABS: Hematocrit 23.3 % (36.0-46.0); Mean Corpuscular Hgb Conc. 32.6 g/dL (32.0-36.0); Mean Corpuscular Volume 83.5 fL (80.0-100.0); Platelet Count (auto) 181 10^3/uL (140-450); Red Cell Distribution Width 14.8 % (11.8-14.3); White Blood Cell 8.1 10^3/uL (4.4-10.8)
[2019-10-17 06:01] LABS: Basophils % (manual) 0 (0.0-2.0); Blast Cells 0; Eosinophils % (manual) 0 (0-7); Metamyelocytes % 0; Promyelocytes % 0; Reactive Lymphocytes 0
[2019-10-17 06:04] LABS: Albumin 2.1 g/dL (3.4-5.0); Calcium 7.2 mg/dL (8.5-10.1); Potassium 3.5 mmol/L (3.5-5.1)
[2019-10-17 06:08] LABS: Bilirubin, Total 0.2 mg/dL (0.2-1.0); Total Protein 5.9 g/dL (6.4-8.2)
[2019-10-17] MEDS: LEVOTHYROXINE SODIUM 25 MCG TAB PO SCH (06:11)
[2019-10-17 06:13] LABS: BUN/Creatinine Ratio 9.7
[2019-10-17] MEDS: ACETAMINOPHEN 325 MG TAB PO PRN ×3 (06:30→19:02)
--- NOTE | 2019-10-17 07:00 | NUR ---
Opening Shift Note Assumed care of patient, sleeping. No S/S of distress/SOB or pain. Instructed on POC and to call for assist PRN, will continue to monitor for changes Q1hr and PRN.
[2019-10-17 07:03] LABS: Band Neutrophils % (manual) 2; Lymphocytes % (manual) 14 (10.0-50.0); Monocytes % (manual) 4 (0-12); Myelocytes % 1
[2019-10-17] MEDS: SODIUM CHLORIDE 0.9% 1,000 ML IV SCH ×3 (08:57→17:42)
[2019-10-17] MEDS: MYCOPHENOLATE 500 MG TAB PO SCH ×2 (08:58→22:24)
[2019-10-17] MEDS: TACROLIMUS 1 MG CAP PO SCH (08:58)
[2019-10-17 09:22] VITALS: BP 102/67
[2019-10-17] MEDS: ERTAPENEM SOD INJ 1 GM in SODIUM CHL 0.9% 50 ML IV SCH (10:15)
[2019-10-17] MEDS ORDERED: SODIUM CHLORIDE 0.9% 2,000 ML IV ONE (11:45)
[2019-10-17] MEDS ORDERED: PANTOPRAZOLE 40 MG TAB PO ONE (12:00)
[2019-10-17 13:00] VITALS: BP 129/78
[2019-10-17 17:41] VITALS: BP 116/78
[2019-10-17] MEDS: FERROUS SULFATE 325 MG TAB PO SCH (17:42)
[2019-10-17] MEDS: ENSURE CLEAR Mixed Berry 8oz Carton PO SCH (17:42)
--- NOTE | 2019-10-17 19:20 | NUR ---
Opening shift note: Assumed care of patient. Patient awake, alert and oriented x 4. No s/s or SOB or distress and patient reports body aches. Bed is in lowest locked position, two side rails raised and call hopper within reach. Instructed on POC and encouraged to use call hopper for assistance, all questions and concerns addressed, patient verbalizes understanding. Will continue to monitor Q1 hr and PRN.
[2019-10-17 20:00] VITALS: BP 126/79
--- NOTE | 2019-10-17 21:10 | NUR ---
Temp 102.3. Cooling measures initiated.
--- NOTE | 2019-10-17 22:10 | NUR ---
Urine sent to lab.
--- NOTE | 2019-10-17 22:20 | NUR ---
Temperature Reassessment: Temperature is 101.8 F, HR 100, BP 126/79, RR 20, SpO1 93% on room air, cooling measures still in place and Tylenol not yet due. Discussed the possible use of Motrin to reduce her temp, education provided and all questions and concerns addressed, patient verbalizes understanding and agrees to take Motrin. Will medicate per EMAR and reassess temperature and continue to monitor Q1 hr and PRN.
[2019-10-17 22:26] LABS: Urine Bacteria NONE SEEN /hpf (None Seen); Urine Blood Negative /uL (Negative); Urine Specific Gravity 1.012 (1.001-1.035); Urine WBC 21 /hpf (0 - 5)
[2019-10-17 22:41] LABS: Creatinine, Urine 99 mg/dL (30.0-125.0); Sodium Urine 83 mmol/L (40-220)
[2019-10-17] MEDS: IBUPROFEN 400 MG TAB PO PRN (22:56)
[2019-10-18] MEDS: ACETAMINOPHEN 325 MG TAB PO PRN ×3 (00:55→21:51)
--- NOTE | 2019-10-18 02:00 | NUR ---
Temperature 99.4 F. Will continue to Monitor
[2019-10-18] MEDS: SODIUM CHLORIDE 0.9% 1,000 ML IV SCH ×3 (02:45→20:15)
[2019-10-18 05:23] VITALS: BP 110/65
[2019-10-18] MEDS: LEVOTHYROXINE SODIUM 25 MCG TAB PO SCH (06:33)
[2019-10-18 07:13] LABS: Hematocrit 19.8 % (36.0-46.0); Mean Corpuscular Hemoglobin 27.5 pg (28.0-32.0); Mean Corpuscular Hgb Conc. 32.7 g/dL (32.0-36.0); Mean Corpuscular Volume 84.3 fL (80.0-100.0); Platelet Count (auto) 198 10^3/uL (140-450); Red Blood Cells 2.35 10^6/uL (4.0-5.20); Red Cell Distribution Width 15.5 % (11.8-14.3); White Blood Cell 7.3 10^3/uL (4.4-10.8)
[2019-10-18 07:22] LABS: Hemoglobin 6.5 g/dL (12.2-16.2)
[2019-10-18 07:23] LABS: Band Neutrophils % (manual) 0; Basophils % (manual) 0 (0.0-2.0); Blast Cells 0; Metamyelocytes % 0; Myelocytes % 0; Promyelocytes % 0; Reactive Lymphocytes 0
[2019-10-18 07:28] LABS: BUN/Creatinine Ratio 12.1; Potassium 3.4 mmol/L (3.5-5.1)
--- NOTE | 2019-10-18 07:30 | NUR ---
RECEIVED REPORT FROM NIGHT NURSE. PATIENT RESTING IN BED, NO DISTRESS NOTED. WILL CONTINUE TO MONITOR.
[2019-10-18] MEDS: FERROUS SULFATE 325 MG TAB PO SCH ×2 (08:10→17:52)
[2019-10-18] MEDS: ENSURE CLEAR Mixed Berry 8oz Carton PO SCH ×2 (08:11→17:53)
[2019-10-18 09:00] VITALS: BP 114/85
[2019-10-18 09:04] LABS: Eosinophils % (manual) 3 (0-7); Lymphocytes % (manual) 13 (10.0-50.0); Monocytes % (manual) 11 (0-12)
[2019-10-18] MEDS: ERTAPENEM SOD INJ 1 GM in SODIUM CHL 0.9% 50 ML IV SCH (10:11)
[2019-10-18] MEDS: MYCOPHENOLATE 500 MG TAB PO SCH ×2 (10:11→21:52)
[2019-10-18] MEDS: PANTOPRAZOLE 40 MG TAB PO SCH (10:11)
[2019-10-18] MEDS: SODIUM FERR GLUC 62.5MG/5ML 125 MG in SODIUM CHL 0.9% 100 ML IV SCH (12:18)
--- NOTE | 2019-10-18 12:33 | NUR ---
URINE CULTURE ESBL, NOTIFIED DOCTOR
[2019-10-18 13:00] VITALS: BP 157/86
[2019-10-18] MEDS: IBUPROFEN 400 MG TAB PO PRN (13:19)
--- NOTE | 2019-10-18 13:20 | NUR ---
TEMPERATURE 102.2, MOTRIN GIVEN. WILL CONTINUE TO MONITOR.
[2019-10-18] MEDS ORDERED: FUROSEMIDE 100 MG/10ML VIAL IV ONE (14:15)
[2019-10-18 17:00] VITALS: BP 133/71
[2019-10-18] MEDS ORDERED: POTASSIUM CHL 20 Meq TABLET PO ONE (18:30)
--- NOTE | 2019-10-18 19:15 | NUR ---
Opening Shift Note: Assumed care of patient. Patient is awake, alert and oriented x 4. No s/s of SOB or distress, patient states she "feels much better than yesterday". Bed in lowest locked position with two side rails raised and call hopper within reach. Instructed on POC and encouraged patient to call for assistance, all questions and concerns addressed, patient verbalizes understanding. Will continue to monitor Q1 hr and PRN.
[2019-10-18 20:00] VITALS: BP 137/94
[2019-10-18] MEDS ORDERED: EPOETIN ALFA 10,000 UNIT/1 ML VIAL SC ONE (21:00)
[2019-10-18 22:00] VITALS: BP 137/94
--- NOTE | 2019-10-19 00:30 | NUR ---
ROUNDS: Patient resting in bed with eyes closed. Respirations even and unlabored and no s/s of SOB or distress. Will continue to monitor
[2019-10-19 05:00] VITALS: BP 140/91
[2019-10-19] MEDS: LEVOTHYROXINE SODIUM 25 MCG TAB PO SCH (06:24)
[2019-10-19] MEDS: ENSURE CLEAR Mixed Berry 8oz Carton PO SCH (08:00)
[2019-10-19] MEDS: FERROUS SULFATE 325 MG TAB PO SCH ×2 (08:06→17:42)
[2019-10-19 08:22] LABS: Hemoglobin 7.4 g/dL (12.2-16.2)
[2019-10-19 08:24] LABS: Hematocrit 22.8 % (36.0-46.0)
[2019-10-19 08:42] LABS: BUN/Creatinine Ratio 9.4; Calcium 7.9 mg/dL (8.5-10.1); Potassium 3.1 mmol/L (3.5-5.1)
[2019-10-19 09:00] VITALS: BP 140/89
[2019-10-19] MEDS ORDERED: POTASSIUM CHL 20 Meq TABLET PO ONE (09:00)
[2019-10-19] MEDS ORDERED: FUROSEMIDE 100 MG/10ML VIAL IV ONE (09:00)
--- NOTE | 2019-10-19 09:00 | NUR ---
Spoke with Dr. Childress, refinery technician. He was updated on patient's labs and I&O. New orders received. Will continue to monitor.
[2019-10-19 09:02] LABS: % Iron Saturation 62.8 % (15-50)
--- NOTE | 2019-10-19 10:00 | NUR ---
Midline Replacement: Pt reporting soreness to the current midline to left upper extremity. Currently infusing NS at 80 mls/hr. Insertion site noted to be firm to touch with some mild redness noted. Midline was d/c'd with 10 cm catheter fully in tact, pressure dressing applied. 4 fr/15cm midline inserted via right basilic vein using Ultrasound. Sterile technique utilized. Blood return obtained from lumen and flushed easily with NS using proper technique. Midline secured with stat lock; biodisc and occlusive dressing applied. Liz GRIFFITH notified. Midline lot #[id number]
[2019-10-19] MEDS: ERTAPENEM SOD INJ 1 GM in SODIUM CHL 0.9% 50 ML IV SCH (10:51)
[2019-10-19] MEDS: PANTOPRAZOLE 40 MG TAB PO SCH (10:52)
[2019-10-19] MEDS: MYCOPHENOLATE 500 MG TAB PO SCH ×2 (11:10→21:58)
[2019-10-19] MEDS: SODIUM FERR GLUC 62.5MG/5ML 125 MG in SODIUM CHL 0.9% 100 ML IV SCH (12:00)
[2019-10-19 13:00] VITALS: BP 155/83
[2019-10-19] MEDS: SODIUM CHLORIDE 0.9% 1,000 ML IV SCH ×2 (13:00→21:39)
[2019-10-19] MEDS: ACETAMINOPHEN 325 MG TAB PO PRN (13:36)
--- NOTE | 2019-10-19 16:34 | NUR ---
Nutrition Assessment Notes Please refer to link for full assessment notes. Est Energy needs: 4476-0396 kcals (23-25 kcal/kgBW) Est Protein needs: 54-67 gms/day (0.8-1.0 gm/kgBW) Will continue to monitor and reassess prn. Addendum: 10/19/19 at [address] Amended: Links added.
[2019-10-19 17:17] VITALS: BP 128/84
--- NOTE | 2019-10-19 19:05 | NUR ---
Opening shift note: Assumed care of patient. Patient is awake, alert and oriented x 4, no s/s of SOB or distress and patient denies pain. Bed in lowest locked position with two side rails raised and call hopper within reach. Instructed on POC and encouraged to use call hopper for assistance, all questions and concerns addressed, patient verbalizes understanding. Will continue to monitor Q1 hr and PRN.
[2019-10-19 20:00] VITALS: BP 136/85
[2019-10-19 21:00] VITALS: BP 136/85
[2019-10-19] MEDS: TACROLIMUS 1 MG CAP PO SCH (21:59)
[2019-10-19] MEDS ORDERED: TACROLIMUS 1 MG CAP PO SCH (22:00)
--- NOTE | 2019-10-19 22:04 | NUR ---
Medication held. Spoke with after hours pharmacy regarding new order for Prograf, medication unavailable until morning.
[2019-10-20 05:00] VITALS: BP 137/98
[2019-10-20] MEDS: LEVOTHYROXINE SODIUM 25 MCG TAB PO SCH (06:26)
[2019-10-20 07:10] LABS: Calcium 7.4 mg/dL (8.5-10.1); Potassium 3.2 mmol/L (3.5-5.1)
[2019-10-20 07:12] LABS: BUN/Creatinine Ratio 7.4
[2019-10-20] MEDS: ENSURE CLEAR Mixed Berry 8oz Carton PO SCH ×2 (07:40→17:35)
--- NOTE | 2019-10-20 07:51 | NUR ---
Opening Note Assumed pt care from NOC RN. Pt is a/ox4 with no s/s of distress or SOB. Pt is currently sitting in chair with no complaints at this time. Discussed POC with pt; pt verbalized understanding. Pending s/s consult for home antibiotics. Safety measures maintained with call light within reach, bed in lowest position and side rails up. Will continue to monitor.
[2019-10-20] MEDS: FERROUS SULFATE 325 MG TAB PO SCH ×2 (07:56→17:35)
[2019-10-20 09:00] VITALS: BP 139/99
[2019-10-20] MEDS: MYCOPHENOLATE 500 MG TAB PO SCH ×2 (09:15→22:19)
[2019-10-20] MEDS: ERTAPENEM SOD INJ 1 GM in SODIUM CHL 0.9% 50 ML IV SCH (09:15)
[2019-10-20] MEDS: TACROLIMUS 1 MG CAP PO SCH ×2 (09:16→22:18)
[2019-10-20] MEDS: PANTOPRAZOLE 40 MG TAB PO SCH (09:16)
[2019-10-20] MEDS: SODIUM CHLORIDE 0.9% 1,000 ML IV SCH (09:16)
--- NOTE | 2019-10-20 11:08 | NUR ---
Dr Sweeney at Bedside MD to see pt. Discussed POC with pt. Plans to keep pt one more day. Plans for d/c home in AM once HH abx is set up. Will continue to monitor.
[2019-10-20] MEDS ORDERED: POTASSIUM CHL 20 Meq TABLET PO ONE (11:15)
[2019-10-20] MEDS: SODIUM FERR GLUC 62.5MG/5ML 125 MG in SODIUM CHL 0.9% 100 ML IV SCH (12:01)
[2019-10-20 13:00] VITALS: BP 136/90
[2019-10-20 16:36] VITALS: BP 140/84
--- NOTE | 2019-10-20 17:43 | NUR ---
Assessment Patient is a 44-year-old female who is alert and oriented. Prior to admission patient lived home with family and functioned independently. Patient informed me she does not have any DME now. Per patient she will return home to her prior living arrangements post discharge and will need a family will transport home. Advised patient there is a social service consult for home IV abx for 9 days. Per patient she does not need home health service stating she will be able to do her own IV abx. Informed patient ADELE Luna will assist with the IV abx. Informed patient she has the right to participate in all discharge planning. Patient verbalized understanding and agreed to discharge plan. Faxed clinical information to patient health plan. ADELE Luna will assist with Infusion company. Addendum: 10/20/19 at 1748 by KIRAN HIGUERA Amended: Links added.
--- NOTE | 2019-10-20 18:41 | NUR ---
1700 10/20/19 - Faxed to [facility] at [phone] face sheet, order for IV ABx (Invanz 1 GM daily x 9 days) midline note, H/P, labs, meds, progress. Will f/u with [facility] in AM.
--- NOTE | 2019-10-20 19:44 | NUR ---
Opening Shift Note Received report and assumed care of patient. Patient is awake and alert. No signs or symptoms of distress noted, patient currently denies pain. Instructed patient on plan of care and to call for assistance as needed. Will continue to monitor.
[2019-10-20 22:00] VITALS: BP 142/86
[2019-10-21 05:00] VITALS: BP 143/99
[2019-10-21 06:44] LABS: Hemoglobin 7.9 g/dL (12.2-16.2); Mean Corpuscular Hemoglobin 27.4 pg (28.0-32.0); Mean Corpuscular Hgb Conc. 33.2 g/dL (32.0-36.0)
[2019-10-21 06:46] LABS: Hematocrit 23.7 % (36.0-46.0); Mean Corpuscular Volume 82.5 fL (80.0-100.0); Platelet Count (auto) 351 10^3/uL (140-450); Red Blood Cells 2.87 10^6/uL (4.0-5.20); Red Cell Distribution Width 14.7 % (11.8-14.3)
[2019-10-21] MEDS: LEVOTHYROXINE SODIUM 25 MCG TAB PO SCH (06:50)
[2019-10-21 06:55] LABS: Band Neutrophils % (manual) 0; Basophils % (manual) 0 (0.0-2.0); Blast Cells 0; Promyelocytes % 0; Reactive Lymphocytes 0
[2019-10-21 06:58] LABS: BUN/Creatinine Ratio 10.5; Calcium 7.6 mg/dL (8.5-10.1); Potassium 3.3 mmol/L (3.5-5.1)
--- NOTE | 2019-10-21 07:30 | NUR ---
Opening Note Assumed pt care from NOC RN. Pt is a/ox4 with no s/s of distress or SOB. Pt is currently out of bed with no complaints at this time. Discussed POC with pt and pending infusion set up. Safety measures maintained with call light within reach, bed in lowest position and side rails up. Will continue to monitor.
[2019-10-21] MEDS: FERROUS SULFATE 325 MG TAB PO SCH (07:34)
[2019-10-21] MEDS: ENSURE CLEAR Mixed Berry 8oz Carton PO SCH (07:35)
[2019-10-21 07:58] LABS: Eosinophils % (manual) 2 (0-7); Lymphocytes % (manual) 16 (10.0-50.0); Metamyelocytes % 1; Monocytes % (manual) 2 (0-12); Myelocytes % 3
[2019-10-21 09:00] VITALS: BP 142/91
[2019-10-21] MEDS: ERTAPENEM SOD INJ 1 GM in SODIUM CHL 0.9% 50 ML IV SCH (09:14)
[2019-10-21] MEDS: TACROLIMUS 1 MG CAP PO SCH (09:15)
[2019-10-21] MEDS: PANTOPRAZOLE 40 MG TAB PO SCH (09:15)
[2019-10-21] MEDS: MYCOPHENOLATE 500 MG TAB PO SCH (09:15)
[2019-10-21] MEDS ORDERED: POTASSIUM CHL 20 Meq TABLET PO SCH (10:00)
--- NOTE | 2019-10-21 11:41 | NUR ---
Dr Sweeney at Bedside MD to see pt. Plans to d/c pt home today once HH abx treatment is established. Will f/u with [facility] to confirm abx infusion confirmation.
[2019-10-21] MEDS ORDERED: POTASSIUM CHL 20 Meq TABLET PO ONE (11:45)
--- NOTE | 2019-10-21 11:45 | NUR ---
D/C Planning Spoke with Cherly in . She confirmed that pt has been accepted and approved for home abx. Drop off time at 2000 tonight. Will continue with d/c and notify patient.
[2019-10-21 11:48] VITALS: BP 142/91
[2019-10-21] MEDS: SODIUM FERR GLUC 62.5MG/5ML 125 MG in SODIUM CHL 0.9% 100 ML IV SCH (12:00)
[2019-10-21 12:37] VITALS: BP 144/92
--- NOTE | 2019-10-21 12:43 | NUR ---
Pt D/C'ed Off Unit Pt ambulated off unit. Pt is a/ox4 with no s/s of distress or SOB upon d/c. Pt to go home with midline; infusion to start upon d/c. Pt aware and provided information regarding follow up appointments, education, prescriptions, and all questions were answered. Pt took all belongings home with her.
== END 2019-10-21 12:45 | disposition home or self-care (01) | DRG 871 ==
LOC: WEST WING 08:13
PROVIDERS: ADMIT Internal Medicine; ATTEND Internal Medicine
DX: A41.9 Sepsis, unspecified organism (principal); N18.6 End stage renal disease; E43 Unspecified severe protein-calorie malnutrition; I12.0 Hypertensive chronic kidney disease with stage 5 chronic kidney disease or end stage renal disease; N39.0 Urinary tract infection, site not specified; T86.19 Other complication of kidney transplant; Z16.12 Extended spectrum beta lactamase (ESBL) resistance; B96.20 Unspecified Escherichia coli [E. coli] as the cause of diseases classified elsewhere; E86.0 Dehydration; D63.8 Anemia in other chronic diseases classified elsewhere; D50.9 Iron deficiency anemia, unspecified; E03.9 Hypothyroidism, unspecified; M32.9 Systemic lupus erythematosus, unspecified; Y83.0 Surgical operation with transplant of whole organ as the cause of abnormal reaction of the patient, or of later complication, without mention of misadventure at the time of the procedure; Z80.0 Family history of malignant neoplasm of digestive organs; Z80.8 Family history of malignant neoplasm of other organs or systems; Z82.49 Family history of ischemic heart disease and other diseases of the circulatory system; Z87.440 Personal history of urinary (tract) infections; Z82.3 Family history of stroke; Z68.27 Body mass index [BMI] 27.0-27.9, adult
CPT/HCPCS: 36415; 80048; 80053; 80197; 81001; 82570; 82728; 83540; 83550; 84300; 84443; 85007; 85014; 85018; 85027; 85610; 85730; 87040; 87086; 87088; 87186; G0378; J0885; J1335; J2405; J7507; J7517

== ENCOUNTER 2019-11-21 14:18 | Inpatient (IN) | payer BC ==
[~2019-11-21] VITALS: Ht 30.5 cm; Wt 67.8 kg
[2019-11-21] MEDS ORDERED: TEMAZEPAM 15 MG CAP PO PRN (16:00)
[2019-11-21] MEDS ORDERED: ERTAPENEM SOD INJ 1 GM in SODIUM CHL 0.9% 50 ML IV ONE (16:00)
[2019-11-21] MEDS ORDERED: MORPHINE SULF INJ 2 MG/ML SYRINGE 1ML IV PRN (16:00)
[2019-11-21] MEDS ORDERED: traMADol HCL 50 MG TAB PO PRN (16:00)
[2019-11-21 17:00] VITALS: BP 119/70
--- NOTE | 2019-11-21 17:00 | NUR ---
Midline Placement: Patient educated on need for midline placement. All risks and benefits explained and all questions and concerns addresses prior to procedure. 4 fr midline inserted via right basilic vein using Ultrasound. Sterile technique utilized. Blood return obtained from lumen and flushed easily with NS using proper technique. Midline secured with saline lock; biodisc and occlusive dressing applied. Daniel GRIFFITH notified. Midline length 18 cm. Midline lot #[id number]
[2019-11-21] MEDS: ACETAMINOPHEN 500 MG TAB PO PRN (17:37)
[2019-11-21] MEDS: SODIUM CHLORIDE 0.9% 1,000 ML IV SCH (17:58)
[2019-11-21] MEDS: PROMETHAZINE HCL 25 MG/ML 1ML IV PRN (19:15)
--- NOTE | 2019-11-21 19:30 | NUR ---
Opening Shift Note Assumed care of patient, awake and alert x4. No S/S of distress/SOB or pain. Oral temperature is 100.6, cooling measures implemented. MIKAELA midline is asymptomatic and running NS at 100mls/hr. Call light is within reach, side rails up x2, bed is in the lowest position. Instructed on POC and to call for assist PRN, will continue to monitor for changes Q1hr and PRN.
[2019-11-21 20:10] VITALS: BP 118/75
--- NOTE | 2019-11-21 21:00 | NUR ---
Patient's oral temperature is now 100.3, cooling measurers are in place. Will continue to monitor.
[2019-11-21] MEDS: TACROLIMUS 1 MG CAP PO SCH (21:56)
[2019-11-21] MEDS: MYCOPHENOLATE 500 MG TAB PO SCH (21:56)
[2019-11-21 22:00] VITALS: BP 118/75
--- NOTE | 2019-11-21 22:18 | NUR ---
Patient's oral temperature is now 100.2, cooling measurers are in place. Will continue to monitor.
--- NOTE | 2019-11-21 23:32 | NUR ---
Patient's oral temperature is 98.6 degrees. Verified the decrease in temperature by measuring the axillary temperature which was 98.2. Cooling measures removed. Patient is resting in bed, call light is within reach, will continue to monitor.
[2019-11-22] MEDS: PROMETHAZINE HCL 25 MG/ML 1ML IV PRN (00:20)
--- NOTE | 2019-11-22 00:20 | NUR ---
Patient is complaining of feeling nauseous and states she just got sick on her way to the restroom. Phenergan administered for nausea, will reassess.
--- NOTE | 2019-11-22 00:50 | NUR ---
Patient states her nausea is gone but would like some ice chips and saltine crackers. Ice chips and crackers provided. Will continue to monitor.
[2019-11-22] MEDS: SODIUM CHLORIDE 0.9% 1,000 ML IV SCH ×4 (02:36→23:35)
[2019-11-22 05:00] VITALS: BP 96/57
--- NOTE | 2019-11-22 07:16 | NUR ---
Endorsed care to Daniel RGIFFITH. Patient is resting in bed, no S/S of distress. Call light is within reach.
--- NOTE | 2019-11-22 07:30 | NUR ---
Opening Shift Note Assumed care of patient, awake and alert. No S/S of distress/SOB or pain. Instructed on POC and to call for assist PRN, will continue to monitor for changes Q1hr and PRN.
[2019-11-22 07:31] LABS: Basophils # (auto) 0 10 ^3/uL (0-0.2); Basophils % (auto) 0.2 % (0.0-2.0); Eosinophils # (auto) 0 10 ^3/uL (0-0.8); Eosinophils % (auto) 0.1 % (0.0-7.0); Hemoglobin 8.2 g/dL (12.2-16.2); Lymphocytes # (auto) 0.7 10 ^3/uL (0.4-5.4); Monocytes # (auto) 1.3 10 ^3/uL (0-1.3); Red Blood Cells 2.95 10^6/uL (4.0-5.20)
[2019-11-22 07:34] LABS: Hematocrit 25.7 % (36.0-46.0); Lymphocytes % (auto) 6.6 % (10.0-50.0); Mean Corpuscular Hemoglobin 27.8 pg (28.0-32.0); Mean Corpuscular Hgb Conc. 31.9 g/dL (32.0-36.0); Monocytes % (auto) 12.2 % (0.0-12.0); Neutrophils # (auto) 8.9 10 ^3/uL (1.6-8.6); Neutrophils % (auto) 80.9 % (37.0-80.0); Platelet Count (auto) 173 10^3/uL (140-450)
[2019-11-22 07:52] LABS: Albumin 2.4 g/dL (3.4-5.0); BUN/Creatinine Ratio 11.7; Calcium 7.6 mg/dL (8.5-10.1); Potassium 3.7 mmol/L (3.5-5.1)
[2019-11-22 07:55] LABS: Bilirubin, Total 0.2 mg/dL (0.2-1.0); Total Protein 6.5 g/dL (6.4-8.2)
[2019-11-22 08:00] VITALS: BP 105/70
[2019-11-22 09:00] VITALS: BP 105/70
[2019-11-22] MEDS: MYCOPHENOLATE 500 MG TAB PO SCH ×2 (09:58→22:32)
[2019-11-22] MEDS: ERTAPENEM SOD INJ 1 GM in SODIUM CHL 0.9% 50 ML IV SCH (09:58)
[2019-11-22] MEDS: TACROLIMUS 1 MG CAP PO SCH ×2 (09:58→22:32)
[2019-11-22] MEDS: LEVOTHYROXINE SODIUM 50 MCG TAB PO SCH (09:59)
[2019-11-22] MEDS: CHOLECALCIFEROL (VITD3) 1,000UNIT=25mCg TAB PO SCH (09:59)
--- NOTE | 2019-11-22 10:55 | NUR ---
SPOKE WITH LABORATORY CONCERNING THE PATIENT'S BLOOD CULTURE DRAW. THE PATIENT WAS DRAWN AN OUTPATIENT ON 11/20. THE CULTURE ARE CURRENTLY INCUBATING AND NO PRELIMINARY KNOWN AT THIS TIME.
[2019-11-22] MEDS: PANTOPRAZOLE 40 MG TAB PO SCH (11:55)
[2019-11-22 12:06] LABS: Hematocrit 24.3 % (36.0-46.0)
[2019-11-22] MEDS: ACETAMINOPHEN 500 MG TAB PO PRN (13:45)
[2019-11-22 19:15] LABS: Hematocrit 23.5 % (36.0-46.0); Hemoglobin 7.6 g/dL (12.2-16.2)
[2019-11-22 20:00] VITALS: BP 122/75
[2019-11-22 22:00] VITALS: BP 122/75
[2019-11-22 22:36] LABS: Hematocrit 24.7 % (36.0-46.0)
[2019-11-23] VITALS (7 sets, daily range): BP systolic 135–145; BP diastolic 79–90
[2019-11-23] MEDS: LEVOTHYROXINE SODIUM 50 MCG TAB PO SCH (06:35)
[2019-11-23] MEDS: SODIUM CHLORIDE 0.9% 1,000 ML IV SCH ×3 (06:37→21:34)
[2019-11-23 07:39] LABS: Basophils # (auto) 0 10 ^3/uL (0-0.2); Eosinophils % (auto) 0.6 % (0.0-7.0); Mean Corpuscular Hgb Conc. 32.2 g/dL (32.0-36.0); Mean Corpuscular Volume 86.8 fL (80.0-100.0); Red Blood Cells 2.85 10^6/uL (4.0-5.20)
--- NOTE | 2019-11-23 07:40 | NUR ---
PATIENT ROUNDS PATIENT LYING IN BED, NO DISTRESS NOTED. RR EQUAL AND NONLABORED, NO SIGNS OF DISTRESS OR DISCOMFORT. BED IN LOWEST POSITION, SIDE RAILS UP X2, CALL LIGHT WITHIN REACH. PATIENT ENCOURAGED TO CALL IF THEY NEED ANYTHING. WILL CONTINUE TO MONITOR.
[2019-11-23 07:41] LABS: Basophils % (auto) 0.4 % (0.0-2.0); Eosinophils # (auto) 0.1 10 ^3/uL (0-0.8); Hematocrit 24.7 % (36.0-46.0); Lymphocytes # (auto) 0.9 10 ^3/uL (0.4-5.4); Lymphocytes % (auto) 10.8 % (10.0-50.0); Monocytes % (auto) 12.3 % (0.0-12.0); Neutrophils # (auto) 6.2 10 ^3/uL (1.6-8.6); Neutrophils % (auto) 75.9 % (37.0-80.0); Platelet Count (auto) 189 10^3/uL (140-450); Red Cell Distribution Width 18.9 % (11.8-14.3); White Blood Cell 8.2 10^3/uL (4.4-10.8)
[2019-11-23 08:04] LABS: Albumin 2.2 g/dL (3.4-5.0); Calcium 7.5 mg/dL (8.5-10.1); Potassium 3.8 mmol/L (3.5-5.1)
[2019-11-23 08:08] LABS: BUN/Creatinine Ratio 10.1; Bilirubin, Total 0.2 mg/dL (0.2-1.0); Total Protein 5.9 g/dL (6.4-8.2)
--- NOTE | 2019-11-23 08:53 | NUR ---
JOSE DANIEL CALLED DR SYED OFFICE REGARDING PENDING CONSULT, SPOKE WITH RENETTA IN OFFICE, MESSAGE LEFT FOR DR SYED. WILL CONTINUE TO FOLLOW UP
[2019-11-23] MEDS: PANTOPRAZOLE 40 MG TAB PO SCH (09:11)
[2019-11-23] MEDS: CHOLECALCIFEROL (VITD3) 1,000UNIT=25mCg TAB PO SCH (09:12)
[2019-11-23] MEDS: TACROLIMUS 1 MG CAP PO SCH ×2 (09:12→21:33)
[2019-11-23] MEDS: MYCOPHENOLATE 500 MG TAB PO SCH ×2 (09:13→21:33)
[2019-11-23] MEDS: ERTAPENEM SOD INJ 1 GM in SODIUM CHL 0.9% 50 ML IV SCH (09:13)
--- NOTE | 2019-11-23 09:21 | NUR ---
UPDATE PATIENT UPDATED ON NEW ORDERS BY DR SAGASUTME. NO CALL BACK FROM DR SYED. SPECIMEN CONTAINER PLACED IN PATIENT ROOM FOR PENDING UA. PATIENT EDUCATED AND AWARE OF ORDER.
--- NOTE | 2019-11-23 11:06 | NUR ---
URINE AND BLOOD SENT TO LAB PER MD ORDERS
[2019-11-23 12:23] LABS: Urine Bacteria NONE SEEN /hpf (None Seen); Urine Blood Negative /uL (Negative); Urine WBC 9 /hpf (0 - 5)
[2019-11-23 12:32] LABS: Protein, Urine 45.6 mg/dL (0.0-11.9)
--- NOTE | 2019-11-23 13:49 | NUR ---
LINEN CHANGE COMPLETE BED IN LOWEST POSITION SIDE RAILS UP X2 CALL LIGHT WITHIN REACH.
--- NOTE | 2019-11-23 19:30 | NUR ---
Opening Shift Note Assumed care of patient, awake and alert. No S/S of distress/SOB or pain. Instructed on POC and to call for assist PRN, patient verbalized understanding, will continue to monitor for changes Q1hr and PRN.
[2019-11-24] MEDS: SODIUM CHLORIDE 0.9% 1,000 ML IV SCH (03:30)
[2019-11-24 05:00] VITALS: BP 141/97
[2019-11-24 06:15] LABS: Albumin 2.1 g/dL (3.4-5.0); Calcium 7.4 mg/dL (8.5-10.1); Potassium 3.5 mmol/L (3.5-5.1)
[2019-11-24 06:20] LABS: BUN/Creatinine Ratio 9.3; Bilirubin, Total 0.2 mg/dL (0.2-1.0); Total Protein 5.6 g/dL (6.4-8.2)
[2019-11-24] MEDS: LEVOTHYROXINE SODIUM 50 MCG TAB PO SCH (06:36)
[2019-11-24] MEDS ORDERED: SODIUM CHLORIDE 0.9% 1,000 ML IV SCH (09:45)
[2019-11-24] MEDS: MYCOPHENOLATE 500 MG TAB PO SCH ×2 (10:10→21:10)
[2019-11-24] MEDS: PANTOPRAZOLE 40 MG TAB PO SCH (10:10)
[2019-11-24] MEDS: TACROLIMUS 1 MG CAP PO SCH ×2 (10:10→21:10)
[2019-11-24] MEDS: METOPROLOL TARTRATE 25 MG TAB PO SCH ×2 (10:11→21:13)
[2019-11-24] MEDS: CHOLECALCIFEROL (VITD3) 1,000UNIT=25mCg TAB PO SCH (10:11)
[2019-11-24] MEDS: ERTAPENEM SOD INJ 1 GM in SODIUM CHL 0.9% 50 ML IV SCH (10:12)
[2019-11-24 11:54] LABS: % Iron Saturation 16.5 % (15-50)
[2019-11-24 11:59] LABS: Folate (Folic Acid) 7.87 ng/mL (5.38-24)
[2019-11-24 12:30] VITALS: BP 141/88
--- NOTE | 2019-11-24 13:50 | NUR ---
Nutrition Assessment Notes Please refer to link for full assessment notes. Est Energy needs: 0416-0755 kcals (23-25 kcal/kgBW) Est Protein needs: 55-69 gms/day (0.8-1.0 gm/kgBW) Will continue to monitor and reassess prn. Addendum: 11/24/19 at [address] Amended: Links added.
--- NOTE | 2019-11-24 14:50 | NUR ---
MICROBIOLOGY CALLED URINE TESTED POSITIVE FOR ESBL. URINE COLLECTED ON Sunday11/21/2019 OUTPATIENT. NOTIFIED.
[2019-11-24 16:47] VITALS: BP 139/87
--- NOTE | 2019-11-24 19:26 | NUR ---
ENDORSED CARE TO NIGHT RN PATIENT WILL NEED AN EKG.
--- NOTE | 2019-11-24 19:30 | NUR ---
Opening Shift Note Assumed care of patient, awake and alert. No S/S of distress/SOB or pain. Instructed on POC and to call for assist PRN, patient verbalized understanding. Call light within reach, will continue to monitor for changes Q1hr and PRN.
[2019-11-24 20:00] VITALS: BP 130/89
[2019-11-24 23:02] VITALS: BP 130/89
--- NOTE | 2019-11-25 00:05 | NUR ---
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
[2019-11-25 05:23] VITALS: BP 133/84
[2019-11-25] MEDS: LEVOTHYROXINE SODIUM 50 MCG TAB PO SCH (06:08)
[2019-11-25 06:45] LABS: BUN/Creatinine Ratio 10.2; Calcium 8.4 mg/dL (8.5-10.1); Potassium 3.6 mmol/L (3.5-5.1)
--- NOTE | 2019-11-25 08:00 | NUR ---
Opening Shift Note Assumed care of patient, awake and alert.EKG completed by night RN. Midline to right upper arm patent. No S/S of distress/SOB or pain. Instructed on POC and to call for assist PRN, will continue to monitor for changes Q1hr and PRN.
[2019-11-25 09:00] VITALS: BP 142/93
[2019-11-25] MEDS: MYCOPHENOLATE 500 MG TAB PO SCH ×2 (10:15→21:30)
[2019-11-25] MEDS: PANTOPRAZOLE 40 MG TAB PO SCH (10:15)
[2019-11-25] MEDS: METOPROLOL TARTRATE 25 MG TAB PO SCH ×2 (10:15→21:31)
[2019-11-25] MEDS: CHOLECALCIFEROL (VITD3) 1,000UNIT=25mCg TAB PO SCH (10:15)
[2019-11-25] MEDS: ERTAPENEM SOD INJ 1 GM in SODIUM CHL 0.9% 50 ML IV SCH (10:15)
[2019-11-25] MEDS: TACROLIMUS 1 MG CAP PO SCH ×2 (10:15→21:30)
--- NOTE | 2019-11-25 12:04 | NUR ---
I faxed home IV ATB order to [facility].
[2019-11-25 12:35] VITALS: BP 136/88
--- NOTE | 2019-11-25 12:38 | NUR ---
Assessment Patient is a 44-year-old female who is alert and oriented. Prior to admission patient lived home with family and functioned independently. Patient informed me she does not have any DME now. Per patient she will return home to her prior living arrangements post discharge and will need a family will transport home. Advised patient there is a social service consult for home IV abx for 14 days. Per patient she does not need home health service stating she will be able to do her own IV abx. Informed patient ADELE Peterson will assist with the IV abx. Informed patient she has the right to participate in all discharge planning. Patient verbalized understanding and agreed to discharge plan. Addendum: 11/25/19 at 1239 by KIRAN HIGUERA Amended: Links added.
[2019-11-25 16:59] VITALS: BP 126/85
--- NOTE | 2019-11-25 19:25 | NUR ---
Opening note Assumed care of patient, Patient is alert and orientated x4. No sob or distress noted, POC reviewed, Patient has no questions at this time. bed locked in lowest position, Side rails up x2. Call light within reach, will continue to monitor q 1 hr and prn.
--- NOTE | 2019-11-25 19:30 | NUR ---
ENDORSDE CARE TO NIGHT RN
[2019-11-25 21:27] VITALS: BP 144/91
--- NOTE | 2019-11-26 01:50 | NUR ---
Patient rounding Patient is asleep, chest is evenly rising, no sob or distress noted, call light within reach, will continue to monitor.
[2019-11-26 05:00] VITALS: BP 125/82
[2019-11-26 05:42] LABS: Basophils # (auto) 0.1 10 ^3/uL (0-0.2); Basophils % (auto) 0.9 % (0.0-2.0); Eosinophils # (auto) 0.4 10 ^3/uL (0-0.8); Eosinophils % (auto) 6.9 % (0.0-7.0); Hematocrit 24.7 % (36.0-46.0); Hemoglobin 8.5 g/dL (12.2-16.2); Lymphocytes # (auto) 1.5 10 ^3/uL (0.4-5.4); Lymphocytes % (auto) 22.6 % (10.0-50.0); Mean Corpuscular Hemoglobin 28.7 pg (28.0-32.0); Mean Corpuscular Hgb Conc. 34.2 g/dL (32.0-36.0); Mean Corpuscular Volume 83.9 fL (80.0-100.0); Monocytes # (auto) 0.7 10 ^3/uL (0-1.3); Monocytes % (auto) 10.8 % (0.0-12.0); Neutrophils # (auto) 3.8 10 ^3/uL (1.6-8.6); Neutrophils % (auto) 58.8 % (37.0-80.0); Platelet Count (auto) 290 10^3/uL (140-450); Red Blood Cells 2.94 10^6/uL (4.0-5.20); Red Cell Distribution Width 18.1 % (11.8-14.3); White Blood Cell 6.4 10^3/uL (4.4-10.8)
[2019-11-26] MEDS: LEVOTHYROXINE SODIUM 50 MCG TAB PO SCH (06:50)
--- NOTE | 2019-11-26 07:33 | NUR ---
Closing note endorsed care to day shift RN no distress noted.
[2019-11-26 09:00] VITALS: BP 123/84
--- NOTE | 2019-11-26 09:01 | NUR ---
I received a phone message from Adriana at [facility] [phone] ext [phone] letting me know that they did receive new home IV ATB order, she said patient was on service with them before. I called Adriana and left a message letting her know that patient would possibly be discharged today but that I would let her know once order is in.
[2019-11-26] MEDS ORDERED: IRBESARTAN PO SCH (10:00)
--- NOTE | 2019-11-26 10:22 | NUR ---
I spoke with Adriana at [facility] [phone] ext [phone] to let her know that patient will discharge home today. Per Adriana she will call patient and set up delivery time for this evening.
[2019-11-26] MEDS: METOPROLOL TARTRATE 25 MG TAB PO SCH (11:10)
[2019-11-26] MEDS: PANTOPRAZOLE 40 MG TAB PO SCH (11:13)
[2019-11-26] MEDS: MYCOPHENOLATE 500 MG TAB PO SCH (11:13)
[2019-11-26] MEDS: CHOLECALCIFEROL (VITD3) 1,000UNIT=25mCg TAB PO SCH (11:13)
[2019-11-26] MEDS: ERTAPENEM SOD INJ 1 GM in SODIUM CHL 0.9% 50 ML IV SCH (11:14)
[2019-11-26] MEDS: TACROLIMUS 1 MG CAP PO SCH (11:17)
--- NOTE | 2019-11-26 11:39 | NUR ---
[facility] LAB DRAW SENT TO THE LAB.
[2019-11-26 11:40] VITALS: BP 123/84
[2019-11-26] MEDS ORDERED: IRON SUCROSE COMPLEX 200 MG in SODIUM CHL 0.9% 100 ML IV SCH (12:00)
[2019-11-26 12:59] VITALS: BP 135/93
[2019-11-26 13:44] LABS: Basophils # (auto) 0 10 ^3/uL (0-0.2); Basophils % (auto) 0.8 % (0.0-2.0); Eosinophils # (auto) 0.2 10 ^3/uL (0-0.8); Eosinophils % (auto) 2.9 % (0.0-7.0); Hematocrit 27.2 % (36.0-46.0); Hemoglobin 8.9 g/dL (12.2-16.2); Lymphocytes # (auto) 1.1 10 ^3/uL (0.4-5.4); Lymphocytes % (auto) 17.8 % (10.0-50.0); Mean Corpuscular Hemoglobin 27.8 pg (28.0-32.0); Mean Corpuscular Hgb Conc. 32.7 g/dL (32.0-36.0); Mean Corpuscular Volume 85.1 fL (80.0-100.0); Monocytes # (auto) 0.4 10 ^3/uL (0-1.3); Monocytes % (auto) 6.7 % (0.0-12.0); Neutrophils # (auto) 4.4 10 ^3/uL (1.6-8.6); Neutrophils % (auto) 71.8 % (37.0-80.0); Platelet Count (auto) 309 10^3/uL (140-450); Red Blood Cells 3.19 10^6/uL (4.0-5.20); Red Cell Distribution Width 18.2 % (11.8-14.3); White Blood Cell 6.1 10^3/uL (4.4-10.8)
--- NOTE | 2019-11-26 14:00 | NUR ---
I called [facility] [phone] ext [phone] and left message for Adriana asking if they are able to do IV iron infusions at home-awaiting return call.
--- NOTE | 2019-11-26 14:25 | NUR ---
I spoke with nurse Sarthak to let her know that the home IV ATB is all set up-I also spoke with Dr. Sweeney regarding the plan of care-he said the IV Iron can be taken care of at a later time.
--- NOTE | 2019-11-26 15:04 | NUR ---
Per Dr. Sweeney regarding the plan of care-he said the IV Iron can be taken care of at a later time.
--- NOTE | 2019-11-26 15:28 | NUR ---
Discharge instructions given as ordered. Encourage to follow up with PMD as instructed. All questions and concerns addressed. Patient verbalized understanding. Medication reconciliation form completed and copy given to patient. Midline to right upper arm remains in place for home IV antibiotics. Off work note given to patient. New medications sent electronically to preferred pharmacy. Patient ambulated to the [facility] ,no distress noted at time of departure.
== END 2019-11-26 15:20 | disposition home or self-care (01) | DRG 871 ==
LOC: CENTRAL 15:30
PROVIDERS: ADMIT Internal Medicine; ATTEND Internal Medicine
DX: A41.9 Sepsis, unspecified organism (principal); N17.0 Acute kidney failure with tubular necrosis; N18.6 End stage renal disease; I13.11 Hypertensive heart and chronic kidney disease without heart failure, with stage 5 chronic kidney disease, or end stage renal disease; N39.0 Urinary tract infection, site not specified; T86.19 Other complication of kidney transplant; Z16.12 Extended spectrum beta lactamase (ESBL) resistance; E87.1 Hypo-osmolality and hyponatremia; B96.20 Unspecified Escherichia coli [E. coli] as the cause of diseases classified elsewhere; D50.9 Iron deficiency anemia, unspecified; D63.1 Anemia in chronic kidney disease; E86.0 Dehydration; E88.09 Other disorders of plasma-protein metabolism, not elsewhere classified; E89.0 Postprocedural hypothyroidism; M32.9 Systemic lupus erythematosus, unspecified; D89.9 Disorder involving the immune mechanism, unspecified; Y83.0 Surgical operation with transplant of whole organ as the cause of abnormal reaction of the patient, or of later complication, without mention of misadventure at the time of the procedure; M19.90 Unspecified osteoarthritis, unspecified site; Z79.899 Other long term (current) drug therapy; Z80.0 Family history of malignant neoplasm of digestive organs; Z80.8 Family history of malignant neoplasm of other organs or systems; Z82.3 Family history of stroke; Z82.49 Family history of ischemic heart disease and other diseases of the circulatory system; Z83.3 Family history of diabetes mellitus; Z87.440 Personal history of urinary (tract) infections
CPT/HCPCS: 36415; 76775; 80048; 80053; 80197; 81001; 82306; 82570; 82607; 82746; 83010; 83540; 83550; 83615; 83970; 84100; 84156; 84300; 85014; 85018; 85025; 85045; 85652; 86141; 86160; 86225; 86235; 86880; 87086; 93306; G0378; J1335; J1756; J7507; J7517

== ENCOUNTER → 2019-11-21 | Outpatient (CLI) | payer BC ==
[~2019-11-21] MED LIST changes: +IRBE75TA10 PO; +LEVO75TA6 PO
[2019-11-21 10:18] LABS: Basophils # (auto) 0 10 ^3/uL (0-0.2); Basophils % (auto) 0.3 % (0.0-2.0); Eosinophils # (auto) 0 10 ^3/uL (0-0.8); Hematocrit 30.6 % (36.0-46.0); Hemoglobin 9.9 g/dL (12.2-16.2); Lymphocytes # (auto) 0.6 10 ^3/uL (0.4-5.4); Lymphocytes % (auto) 3.7 % (10.0-50.0); Mean Corpuscular Hemoglobin 27.8 pg (28.0-32.0); Mean Corpuscular Hgb Conc. 32.3 g/dL (32.0-36.0); Mean Corpuscular Volume 86.1 fL (80.0-100.0); Monocytes # (auto) 1.4 10 ^3/uL (0-1.3); Monocytes % (auto) 9.1 % (0.0-12.0); Neutrophils # (auto) 13.2 10 ^3/uL (1.6-8.6); Neutrophils % (auto) 86.9 % (37.0-80.0); Nucleated Red Blood Cells % 0.1 %; Platelet Count (auto) 232 10^3/uL (140-450); Red Blood Cells 3.56 10^6/uL (4.0-5.20); Red Cell Distribution Width 18.2 % (11.8-14.3); White Blood Cell 15.2 10^3/uL (4.4-10.8)
[2019-11-21 10:34] LABS: Albumin 3.2 g/dL (3.4-5.0); Calcium 8.8 mg/dL (8.5-10.1); Potassium 3.6 mmol/L (3.5-5.1)
[2019-11-21 10:39] LABS: BUN/Creatinine Ratio 12.8; Bilirubin, Total 0.4 mg/dL (0.2-1.0); Total Protein 7.9 g/dL (6.4-8.2)
[2019-11-21 10:40] LABS: Urine Bacteria MANY /hpf (None Seen); Urine Blood TRACE /uL (Negative); Urine Mucus FEW (None Seen); Urine Specific Gravity 1.015 (1.001-1.035); Urine WBC 326 /hpf (0 - 5); Urine WBC Clumps PRESENT /hpf (None Seen)
== END | disposition home or self-care (01) ==
LOC: LAB 09:55
PROVIDERS: ATTEND Internal Medicine
DX: N18.9 Chronic kidney disease, unspecified (principal); N39.0 Urinary tract infection, site not specified; Z79.899 Other long term (current) drug therapy
CPT/HCPCS: 36415; 80053; 80061; 81001; 83036; 85025; 87040; 87086; 87088; 87186

== ENCOUNTER → 2020-02-09 | Outpatient (CLI) | payer BC ==
[2020-02-09 10:03] LABS: Basophils # (auto) 0.1 10 ^3/uL (0-0.2); Basophils % (auto) 0.9 % (0.0-2.0); Eosinophils # (auto) 0.3 10 ^3/uL (0-0.8); Eosinophils % (auto) 5.1 % (0.0-7.0); Hematocrit 37.7 % (36.0-46.0); Hemoglobin 12.5 g/dL (12.2-16.2); Lymphocytes # (auto) 1.4 10 ^3/uL (0.4-5.4); Lymphocytes % (auto) 23.2 % (10.0-50.0); Mean Corpuscular Hemoglobin 29.5 pg (28.0-32.0); Mean Corpuscular Hgb Conc. 33.1 g/dL (32.0-36.0); Mean Corpuscular Volume 89.1 fL (80.0-100.0); Monocytes # (auto) 0.7 10 ^3/uL (0-1.3); Monocytes % (auto) 11.3 % (0.0-12.0); Neutrophils # (auto) 3.6 10 ^3/uL (1.6-8.6); Neutrophils % (auto) 59.5 % (37.0-80.0); Nucleated Red Blood Cells % 0.1 %; Platelet Count (auto) 292 10^3/uL (140-450); Red Blood Cells 4.23 10^6/uL (4.0-5.20); Red Cell Distribution Width 15.9 % (11.8-14.3)
[2020-02-09 10:14] LABS: Albumin 4.1 g/dL (3.4-5.0); Calcium 9.1 mg/dL (8.5-10.1); Potassium 4.4 mmol/L (3.5-5.1)
[2020-02-09 10:20] LABS: BUN/Creatinine Ratio 19.3; Bilirubin, Total 0.3 mg/dL (0.2-1.0); CRP High Sensitivity 0.14 mg/dL (< 0.3); Phosphorus 3.1 mg/dL (2.5-4.90); Total Protein 8.8 g/dL (6.4-8.2); Uric Acid 6.8 mg/dL (2.6-6.0)
[2020-02-09 10:52] LABS: Protein, Urine 78.1 mg/dL (0.0-11.9)
[2020-02-09 11:12] LABS: Urine Bacteria FEW /hpf (None Seen); Urine Blood Negative /uL (Negative); Urine Specific Gravity 1.006 (1.001-1.035); Urine WBC 1 /hpf (0 - 5)
== END | disposition home or self-care (01) ==
LOC: LAB 09:48
PROVIDERS: ATTEND Internal Medicine
DX: I12.9 Hypertensive chronic kidney disease with stage 1 through stage 4 chronic kidney disease, or unspecified chronic kidney disease (principal); N18.30 Chronic kidney disease, stage 3 unspecified; D63.1 Anemia in chronic kidney disease; M10.9 Gout, unspecified; E21.3 Hyperparathyroidism, unspecified; N39.0 Urinary tract infection, site not specified; E56.9 Vitamin deficiency, unspecified; R80.9 Proteinuria, unspecified
CPT/HCPCS: 36415; 80053; 80069; 81001; 82306; 82570; 83970; 84156; 84550; 85025; 85652; 86141

== ENCOUNTER → 2020-07-26 | Outpatient (CLI) | payer BC ==
[2020-07-26 12:10] LABS: Basophils # (auto) 0.1 10 ^3/uL (0-0.2); Basophils % (auto) 1.2 % (0.0-2.0); Eosinophils # (auto) 0.4 10 ^3/uL (0-0.8); Eosinophils % (auto) 4.8 % (0.0-7.0); Hematocrit 33.8 % (36.0-46.0); Hemoglobin 10.8 g/dL (12.2-16.2); Lymphocytes # (auto) 1.5 10 ^3/uL (0.4-5.4); Mean Corpuscular Hemoglobin 28.8 pg (28.0-32.0); Mean Corpuscular Volume 90.2 fL (80.0-100.0); Monocytes # (auto) 0.7 10 ^3/uL (0-1.3); Monocytes % (auto) 8.3 % (0.0-12.0); Neutrophils # (auto) 5.4 10 ^3/uL (1.6-8.6); Neutrophils % (auto) 66.7 % (37.0-80.0); Platelet Count (auto) 324 10^3/uL (140-450); Red Blood Cells 3.75 10^6/uL (4.0-5.20); Red Cell Distribution Width 14.5 % (11.8-14.3); White Blood Cell 8.1 10^3/uL (4.4-10.8)
[2020-07-26 12:11] LABS: Urine Bacteria NONE SEEN /hpf (None Seen); Urine Blood Negative /uL (Negative); Urine Specific Gravity 1.009 (1.001-1.035); Urine WBC <1 /hpf (0 - 5)
[2020-07-26 12:59] LABS: Potassium 4.1 mmol/L (3.5-5.1)
[2020-07-26 13:03] LABS: BUN/Creatinine Ratio 16.4; Calcium 9.2 mg/dL (8.5-10.1); Phosphorus 2.9 mg/dL (2.5-4.90); Uric Acid 5.4 mg/dL (2.6-6.0)
[2020-07-26 13:14] LABS: Protein, Urine 19.2 mg/dL (0.0-11.9)
[2020-07-26 13:15] LABS: BUN/Creatinine Ratio 17.6; Bilirubin, Total 0.6 mg/dL (0.2-1.0); CRP High Sensitivity 0.47 mg/dL (< 0.3); Calcium 9.2 mg/dL (8.5-10.1); Total Protein 8.3 g/dL (6.4-8.2)
== END | disposition home or self-care (01) ==
LOC: LAB 11:15
PROVIDERS: ATTEND Internal Medicine
DX: I10 Essential (primary) hypertension (principal); E56.9 Vitamin deficiency, unspecified; R80.9 Proteinuria, unspecified; E78.5 Hyperlipidemia, unspecified; E03.9 Hypothyroidism, unspecified; R79.82 Elevated C-reactive protein (CRP)
CPT/HCPCS: 36415; 80053; 80061; 80069; 81001; 82306; 82570; 83970; 84156; 84443; 84550; 85025; 86141

== ENCOUNTER 2020-10-09 11:43 | Inpatient (IN) | payer BC ==
[~2020-10-09] VITALS: Ht 152.4 cm; Wt 66.0 kg
[2020-10-09] MEDS ORDERED: SODIUM CHLORIDE 0.9% 2,000 ML IV ONE (12:00)
[2020-10-09 12:32] LABS: Basophils # (auto) 0 10 ^3/uL (0-0.2); Basophils % (auto) 0.1 % (0.0-2.0); Eosinophils # (auto) 0.2 10 ^3/uL (0-0.8); Eosinophils % (auto) 1.1 % (0.0-7.0); Hematocrit 28.7 % (36.0-46.0); Hemoglobin 9.3 g/dL (12.2-16.2); Lymphocytes # (auto) 0.7 10 ^3/uL (0.4-5.4); Lymphocytes % (auto) 4.7 % (10.0-50.0); Mean Corpuscular Hemoglobin 28.3 pg (28.0-32.0); Mean Corpuscular Hgb Conc. 32.4 g/dL (32.0-36.0); Mean Corpuscular Volume 87.3 fL (80.0-100.0); Monocytes # (auto) 1.4 10 ^3/uL (0-1.3); Monocytes % (auto) 8.8 % (0.0-12.0); Neutrophils # (auto) 13.6 10 ^3/uL (1.6-8.6); Neutrophils % (auto) 85.3 % (37.0-80.0); Platelet Count (auto) 246 10^3/uL (140-450); Red Blood Cells 3.28 10^6/uL (4.0-5.20); White Blood Cell 15.9 10^3/uL (4.4-10.8)
[2020-10-09 12:38] LABS: Albumin 3.4 g/dL (3.4-5.0); Calcium 8.4 mg/dL (8.5-10.1)
[2020-10-09 12:49] LABS: Bilirubin, Total 0.4 mg/dL (0.2-1.0); Total Protein 7.4 g/dL (6.4-8.2)
[2020-10-09] MEDS ORDERED: ONDANSETRON HCL 4 MG/2 ML VIAL IV ONE (13:00)
[2020-10-09] MEDS ORDERED: MORPHINE SULF INJ 2 MG/ML SYRINGE 1ML IV ONE (13:00)
[2020-10-09] MEDS ORDERED: metroNIDAZOLE 500MG/100ML 100 ML IV ONE (13:45)
[2020-10-09] MEDS ORDERED: ACETAMINOPHEN 500 MG TAB PO ONE (13:45)
[2020-10-09] MEDS ORDERED: levoFLOXacin 500MG 100 ML IV ONE (13:45)
[2020-10-09 13:56] LABS: Urine Bacteria NONE SEEN /hpf (None Seen); Urine Blood Negative /uL (Negative); Urine Mucus FEW (None Seen); Urine Specific Gravity 1.015 (1.001-1.035); Urine WBC <1 /hpf (0 - 5)
[2020-10-09] MEDS ORDERED: MORPHINE SULF INJ 2 MG/ML SYRINGE 1ML IV PRN (15:45)
[2020-10-09] MEDS ORDERED: ENALAPRILAT 1.25 MG/ML-1ML VIAL IV PRN (15:45)
[2020-10-09] MEDS: D5W/SOD CHL 0.45% 1,000 ML IV SCH (15:45)
[2020-10-09] MEDS ORDERED: ACETAMINOPHEN 325 MG TAB PO PRN (15:45)
[2020-10-09] MEDS ORDERED: ONDANSETRON HCL 4 MG/2 ML VIAL IV PRN (15:45)
[2020-10-09 17:30] VITALS: BP 98/62
[2020-10-09] MEDS ORDERED: MIDAZOLAM DRIP 50 mg/50mL 50 ML IV ONE (20:49)
[2020-10-09] MEDS ORDERED: METO25TA5 PO (21:53)
[2020-10-09 22:00] VITALS: BP 104/66
[2020-10-09] MEDS: TACROLIMUS 1 MG CAP PO SCH (22:00)
[2020-10-09] MEDS: MYCOPHENOLATE 500 MG TAB PO SCH (22:09)
[2020-10-09] MEDS: metroNIDAZOLE 500MG/100ML 100 ML IV SCH (22:09)
[2020-10-09] MEDS: METOPROLOL TARTRATE 25 MG TAB PO SCH (22:42)
[2020-10-09] MEDS: HYDROcodone-ACET 5/325MG TAB PO PRN (23:56)
[2020-10-10] MEDS: D5W/SOD CHL 0.45% 1,000 ML IV SCH ×3 (02:44→21:42)
[2020-10-10 04:56] VITALS: BP 89/59
[2020-10-10 05:16] LABS: Basophils # (auto) 0 10 ^3/uL (0-0.2); Eosinophils # (auto) 0.8 10 ^3/uL (0-0.8); Lymphocytes # (auto) 0.9 10 ^3/uL (0.4-5.4)
[2020-10-10 05:19] LABS: Basophils % (auto) 0.3 % (0.0-2.0); Eosinophils % (auto) 6.2 % (0.0-7.0); Hematocrit 22.9 % (36.0-46.0); Hemoglobin 7.8 g/dL (12.2-16.2); Lymphocytes % (auto) 7.1 % (10.0-50.0); Mean Corpuscular Hemoglobin 29.5 pg (28.0-32.0); Mean Corpuscular Hgb Conc. 34.2 g/dL (32.0-36.0); Mean Corpuscular Volume 86.2 fL (80.0-100.0); Monocytes # (auto) 1.2 10 ^3/uL (0-1.3); Monocytes % (auto) 9.4 % (0.0-12.0); Neutrophils # (auto) 9.5 10 ^3/uL (1.6-8.6); Platelet Count (auto) 198 10^3/uL (140-450); Red Blood Cells 2.66 10^6/uL (4.0-5.20); Red Cell Distribution Width 13.7 % (11.8-14.3); White Blood Cell 12.3 10^3/uL (4.4-10.8)
[2020-10-10 05:35] LABS: Albumin 2.5 g/dL (3.4-5.0); Potassium 3.7 mmol/L (3.5-5.1)
[2020-10-10 05:39] LABS: BUN/Creatinine Ratio 12.9; Bilirubin, Total 0.4 mg/dL (0.2-1.0); Total Protein 5.9 g/dL (6.4-8.2)
[2020-10-10] MEDS: metroNIDAZOLE 500MG/100ML 100 ML IV SCH ×3 (07:07→21:42)
[2020-10-10] MEDS: LEVOTHYROXINE SODIUM 50 MCG TAB PO SCH (07:08)
[2020-10-10 09:00] VITALS: BP 95/54
[2020-10-10] MEDS: levoFLOXacin 500MG 100 ML IV SCH (09:47)
[2020-10-10] MEDS: MYCOPHENOLATE 500 MG TAB PO SCH ×2 (09:47→21:42)
[2020-10-10] MEDS: TACROLIMUS 1 MG CAP PO SCH ×2 (09:48→21:42)
[2020-10-10] MEDS: CHOLECALCIFEROL (VITD3) 2,000 UNIT CAP/TAB PO SCH (09:49)
[2020-10-10] MEDS: METOPROLOL TARTRATE 25 MG TAB PO SCH (09:50)
[2020-10-10] MEDS ORDERED: LOSARTAN POTASSIUM 25 MG TAB PO SCH (10:00)
[2020-10-10 13:00] VITALS: BP 105/67
[2020-10-10] MEDS: HYDROcodone-ACET 5/325MG TAB PO PRN (14:40)
[2020-10-10 17:00] VITALS: BP 114/74
[2020-10-10 22:00] VITALS: BP 116/81
[2020-10-11] MEDS: POTASSIUM CHLORIDE IV SCH ×2 (01:20→14:42)
[2020-10-11] MEDS: SODIUM BICARBONATE IV SCH ×2 (01:20→14:42)
[2020-10-11] MEDS: [UNRECOGNIZED DRUG - OTHER] IV SCH ×2 (01:20→14:42)
[2020-10-11 05:00] VITALS: BP 108/61
[2020-10-11] MEDS: metroNIDAZOLE 500MG/100ML 100 ML IV SCH ×3 (06:53→21:43)
[2020-10-11] MEDS: LEVOTHYROXINE SODIUM 50 MCG TAB PO SCH (06:53)
[2020-10-11 06:56] LABS: White Blood Cell 6.7 10^3/uL (4.4-10.8)
[2020-10-11 06:58] LABS: Basophils # (auto) 0 10 ^3/uL (0-0.2); Basophils % (auto) 0.3 % (0.0-2.0); Eosinophils # (auto) 0.7 10 ^3/uL (0-0.8); Eosinophils % (auto) 9.9 % (0.0-7.0); Hemoglobin 8.2 g/dL (12.2-16.2); Lymphocytes # (auto) 0.7 10 ^3/uL (0.4-5.4); Lymphocytes % (auto) 10.2 % (10.0-50.0); Mean Corpuscular Hemoglobin 29.3 pg (28.0-32.0); Mean Corpuscular Hgb Conc. 34.4 g/dL (32.0-36.0); Mean Corpuscular Volume 85.3 fL (80.0-100.0); Monocytes # (auto) 0.8 10 ^3/uL (0-1.3); Neutrophils # (auto) 4.5 10 ^3/uL (1.6-8.6); Neutrophils % (auto) 67.6 % (37.0-80.0); Nucleated Red Blood Cells % 0.1 %; Platelet Count (auto) 223 10^3/uL (140-450); Red Blood Cells 2.81 10^6/uL (4.0-5.20); Red Cell Distribution Width 13.9 % (11.8-14.3)
[2020-10-11 07:16] LABS: Potassium 3.7 mmol/L (3.5-5.1)
[2020-10-11 07:23] LABS: BUN/Creatinine Ratio 8.4; Calcium 7.4 mg/dL (8.5-10.1)
[2020-10-11 08:00] VITALS: BP 118/71
[2020-10-11 09:00] VITALS: BP 118/71
[2020-10-11] MEDS: MYCOPHENOLATE 500 MG TAB PO SCH ×2 (10:18→21:43)
[2020-10-11] MEDS: TACROLIMUS 1 MG CAP PO SCH ×2 (10:19→21:44)
[2020-10-11] MEDS: CHOLECALCIFEROL (VITD3) 2,000 UNIT CAP/TAB PO SCH (10:19)
[2020-10-11] MEDS: levoFLOXacin 500MG 100 ML IV SCH (10:19)
[2020-10-11 13:00] VITALS: BP 128/99
[2020-10-11 17:00] VITALS: BP 132/87
[2020-10-11] MEDS ORDERED: PANTOPRAZOLE 40 MG/10 ML VIAL INJ IV ONE (17:00)
[2020-10-11] MEDS: CALCIUM CARB 500 MG CHEW TAB PO SCH (17:40)
[2020-10-11 22:00] VITALS: BP 137/82
[2020-10-12 05:00] VITALS: BP 118/82
[2020-10-12] MEDS: LEVOTHYROXINE SODIUM 50 MCG TAB PO SCH (06:28)
[2020-10-12] MEDS: metroNIDAZOLE 500MG/100ML 100 ML IV SCH (06:28)
[2020-10-12] MEDS: SODIUM BICARBONATE IV SCH (07:36)
[2020-10-12] MEDS: POTASSIUM CHLORIDE IV SCH (07:36)
[2020-10-12] MEDS: [UNRECOGNIZED DRUG - OTHER] IV SCH (07:36)
[2020-10-12] MEDS: CALCIUM CARB 500 MG CHEW TAB PO SCH ×3 (08:30→18:30)
[2020-10-12 09:00] VITALS: BP 135/88
[2020-10-12 09:33] LABS: BUN/Creatinine Ratio 11.2; Calcium 7.9 mg/dL (8.5-10.1)
[2020-10-12] MEDS: levoFLOXacin 500MG 100 ML IV SCH (09:51)
[2020-10-12] MEDS: MYCOPHENOLATE 500 MG TAB PO SCH ×2 (09:52→21:42)
[2020-10-12] MEDS: CHOLECALCIFEROL (VITD3) 2,000 UNIT CAP/TAB PO SCH (09:52)
[2020-10-12] MEDS: TACROLIMUS 1 MG CAP PO SCH ×2 (09:52→21:42)
[2020-10-12] MEDS ORDERED: PANTOPRAZOLE 40 MG/10 ML VIAL INJ IV SCH (10:00)
[2020-10-12] MEDS: MAGNESIUM SULFATE 1GM/100ML 100 ML IV SCH ×2 (11:00→12:00)
[2020-10-12 13:00] VITALS: BP 136/58
[2020-10-12] MEDS: metroNIDAZOLE 500 MG TAB PO SCH ×2 (14:00→21:42)
[2020-10-12 17:00] VITALS: BP 140/92
[2020-10-12] MEDS: METOPROLOL TARTRATE 25 MG TAB PO SCH (21:42)
[2020-10-12 22:00] VITALS: BP 136/97
[2020-10-13 05:00] VITALS: BP 128/89
[2020-10-13] MEDS: LEVOTHYROXINE SODIUM 50 MCG TAB PO SCH (06:11)
[2020-10-13] MEDS: metroNIDAZOLE 500 MG TAB PO SCH (06:11)
[2020-10-13] MEDS: CALCIUM CARB 500 MG CHEW TAB PO SCH (08:22)
[2020-10-13 09:00] VITALS: BP 139/96
[2020-10-13] MEDS ORDERED: LEVO-28 PO (09:34)
[2020-10-13] MEDS ORDERED: ONDA-144 PO (09:34)
[2020-10-13] MEDS ORDERED: MET500T PO (09:34)
[2020-10-13] MEDS ORDERED: FLUC150T38 PO (09:34)
[2020-10-13] MEDS: MYCOPHENOLATE 500 MG TAB PO SCH (09:43)
[2020-10-13] MEDS: METOPROLOL TARTRATE 25 MG TAB PO SCH (09:44)
[2020-10-13] MEDS: TACROLIMUS 1 MG CAP PO SCH (09:45)
[2020-10-13] MEDS: CHOLECALCIFEROL (VITD3) 2,000 UNIT CAP/TAB PO SCH (09:45)
[2020-10-13 09:58] VITALS: BP 128/89
[2020-10-13] MEDS ORDERED: levoFLOXacin 500 MG TAB PO SCH (10:00)
== END 2020-10-13 10:34 | disposition home or self-care (01) | DRG 392 ==
LOC: ER 11:43 → EEVIPCON 11:43 → OVERFLOW 15:39 → CENTRAL 17:42
PROVIDERS: ADMIT Nurse Practitioner Acute Care; ATTEND Internal Medicine
DX: K57.32 Diverticulitis of large intestine without perforation or abscess without bleeding (principal); E87.2 Acidosis; N17.9 Acute kidney failure, unspecified; D84.9 Immunodeficiency, unspecified; Z94.0 Kidney transplant status; D63.1 Anemia in chronic kidney disease; E86.0 Dehydration; E89.0 Postprocedural hypothyroidism; M32.9 Systemic lupus erythematosus, unspecified; Z79.899 Other long term (current) drug therapy; Z80.0 Family history of malignant neoplasm of digestive organs; Z80.8 Family history of malignant neoplasm of other organs or systems; Z82.3 Family history of stroke; Z82.49 Family history of ischemic heart disease and other diseases of the circulatory system; Z87.440 Personal history of urinary (tract) infections; Z20.822 Contact with and (suspected) exposure to COVID-19; E83.42 Hypomagnesemia; N18.31 Chronic kidney disease, stage 3a; I12.9 Hypertensive chronic kidney disease with stage 1 through stage 4 chronic kidney disease, or unspecified chronic kidney disease
CPT/HCPCS: 36415; 74176; 80048; 80053; 81001; 82306; 83605; 83615; 83735; 83970; 84100; 84443; 85025; 85049; 87426; 96361; 96365; 96367; 96375; C9113; G0378; J1956; J2250; J2405; J3490; J7507; J7517

== ENCOUNTER 2021-05-22 12:13 | Inpatient (IN) | payer BC ==
[~2021-05-22] VITALS: Ht 154.9 cm; Wt 69.3 kg
[~2021-05-22 12:13] MED LIST changes: +FLUC150T38 PO; +LEVO-28 PO; +MET500T PO; +METO25TA5 PO; +ONDA-144 PO
[2021-05-22 13:00] VITALS: BP 93/53
[2021-05-22 13:15] VITALS: BP 91/58
[2021-05-22] MEDS: SODIUM CHLORIDE 0.9% 1,000 ML IV SCH (13:30)
[2021-05-22] MEDS ORDERED: HYDROcodone-ACET 5/325MG TAB PO PRN (13:30)
[2021-05-22] MEDS ORDERED: MORPHINE SULFATE INJECTION 2 MG/ML SYRG IV PRN (13:30)
[2021-05-22] MEDS ORDERED: ONDANSETRON HCL 4 MG/2 ML VIAL IV PRN (13:30)
[2021-05-22 13:54] LABS: Urine Bacteria FEW /hpf (None Seen); Urine Blood TRACE /uL (Negative); Urine Hyaline Cast FEW /lpf (0 - 2); Urine Specific Gravity 1.015 (1.001-1.035); Urine WBC 193 /hpf (0 - 5); Urine WBC Clumps PRESENT /hpf (None Seen)
[2021-05-22] MEDS ORDERED: ERTAPENEM SOD INJ 1 GM in SODIUM CHL 0.9% 50 ML IV ONE (14:00)
[2021-05-22 14:40] LABS: Basophils # (auto) 0.1 10 ^3/uL (0-0.2); Basophils % (auto) 0.4 % (0.0-2.0); Eosinophils # (auto) 0 10 ^3/uL (0-0.8); Monocytes # (auto) 1.5 10 ^3/uL (0-1.3)
[2021-05-22 14:42] LABS: Eosinophils % (auto) 0.2 % (0.0-7.0); Hematocrit 19.9 % (36.0-46.0); Lymphocytes % (auto) 6.3 % (10.0-50.0); Mean Corpuscular Hemoglobin 27.2 pg (28.0-32.0); Mean Corpuscular Hgb Conc. 33.1 g/dL (32.0-36.0); Mean Corpuscular Volume 82.3 fL (80.0-100.0); Monocytes % (auto) 9.4 % (0.0-12.0); Neutrophils # (auto) 13.8 10 ^3/uL (1.6-8.6); Neutrophils % (auto) 83.7 % (37.0-80.0); Nucleated Red Blood Cells % 0.1 %; Red Blood Cells 2.42 10^6/uL (4.0-5.20); Red Cell Distribution Width 15.5 % (11.8-14.3); White Blood Cell 16.4 10^3/uL (4.4-10.8)
[2021-05-22 14:48] LABS: Hemoglobin 6.6 g/dL (12.2-16.2)
[2021-05-22 14:53] LABS: Potassium 3.9 mmol/L (3.5-5.1)
[2021-05-22 14:56] LABS: BUN/Creatinine Ratio 10.4
[2021-05-22 16:09] LABS: % Iron Saturation 3.1 % (15-50)
[2021-05-22 16:46] VITALS: BP 109/59
[2021-05-22] MEDS: ACETAMINOPHEN 325 MG TAB PO PRN (17:33)
[2021-05-22 22:00] VITALS: BP 102/62
[2021-05-23] MEDS: ACETAMINOPHEN 325 MG TAB PO PRN ×2 (02:58→18:07)
[2021-05-23 05:13] VITALS: BP 101/63
[2021-05-23] MEDS: SODIUM CHLORIDE 0.9% 1,000 ML IV SCH ×2 (06:10→09:23)
[2021-05-23] MEDS: LEVOTHYROXINE SODIUM 25 MCG TAB PO SCH (06:53)
[2021-05-23 07:21] LABS: Basophils # (auto) 0 10 ^3/uL (0-0.2); Basophils % (auto) 0.3 % (0.0-2.0)
[2021-05-23 07:23] LABS: Eosinophils # (auto) 0.1 10 ^3/uL (0-0.8); Eosinophils % (auto) 0.5 % (0.0-7.0); Hematocrit 20.5 % (36.0-46.0); Lymphocytes # (auto) 0.8 10 ^3/uL (0.4-5.4); Lymphocytes % (auto) 6.8 % (10.0-50.0); Mean Corpuscular Hemoglobin 26.7 pg (28.0-32.0); Mean Corpuscular Hgb Conc. 32.5 g/dL (32.0-36.0); Mean Corpuscular Volume 82.1 fL (80.0-100.0); Monocytes # (auto) 1.3 10 ^3/uL (0-1.3); Monocytes % (auto) 10.1 % (0.0-12.0); Neutrophils # (auto) 10.2 10 ^3/uL (1.6-8.6); Neutrophils % (auto) 82.3 % (37.0-80.0); Red Blood Cells 2.49 10^6/uL (4.0-5.20); Red Cell Distribution Width 15.8 % (11.8-14.3); White Blood Cell 12.3 10^3/uL (4.4-10.8)
[2021-05-23 07:39] LABS: BUN/Creatinine Ratio 12.9; Calcium 8.1 mg/dL (8.5-10.1); Potassium 4.1 mmol/L (3.5-5.1)
[2021-05-23 07:40] LABS: Hemoglobin 6.7 g/dL (12.2-16.2)
[2021-05-23 08:00] VITALS: BP 116/76
[2021-05-23] MEDS: ERTAPENEM SOD INJ 1 GM in SODIUM CHL 0.9% 50 ML IV SCH (09:55)
[2021-05-23] MEDS: SODIUM FERR GLUC 62.5MG/5ML 125 MG in SODIUM CHL 0.9% 100 ML IV SCH (14:00)
[2021-05-23 16:00] VITALS: BP 109/63
[2021-05-23 22:00] VITALS: BP 109/71
[2021-05-24 06:00] VITALS: BP 108/71
[2021-05-24] MEDS: LEVOTHYROXINE SODIUM 25 MCG TAB PO SCH (06:40)
[2021-05-24 08:54] VITALS: BP 95/50
[2021-05-24] MEDS: ERTAPENEM SOD INJ 1 GM in SODIUM CHL 0.9% 50 ML IV SCH (11:24)
[2021-05-24 12:52] VITALS: BP 138/87
[2021-05-24] MEDS: SODIUM FERR GLUC 62.5MG/5ML 125 MG in SODIUM CHL 0.9% 100 ML IV SCH (13:37)
[2021-05-24 16:52] VITALS: BP 127/73
[2021-05-24 20:05] LABS: Albumin 2.1 g/dL (3.4-5.0)
[2021-05-24 20:11] LABS: Alanine Aminotransferase 11 U/L (13-56); Alkaline Phosphatase 52 U/L (45-117); Aspartate Aminotransferase 12 U/L (15-37); Bilirubin, Direct < 0.1 mg/dL (0-0.2); Bilirubin, Total < 0.1 mg/dL (0.2-1.0); Total Protein 6.4 g/dL (6.4-8.2)
[2021-05-24 22:00] VITALS: BP 135/70
[2021-05-25 05:00] VITALS: BP 121/75
[2021-05-25] MEDS: LEVOTHYROXINE SODIUM 25 MCG TAB PO SCH (06:39)
[2021-05-25 08:36] LABS: Basophils # (auto) 0 10 ^3/uL (0-0.2); Eosinophils # (auto) 0.4 10 ^3/uL (0-0.8)
[2021-05-25 08:43] LABS: Basophils % (auto) 0.6 % (0.0-2.0); Hematocrit 20.8 % (36.0-46.0); Lymphocytes # (auto) 1.2 10 ^3/uL (0.4-5.4); Lymphocytes % (auto) 15.8 % (10.0-50.0); Mean Corpuscular Hemoglobin 27.5 pg (28.0-32.0); Mean Corpuscular Hgb Conc. 33.1 g/dL (32.0-36.0); Monocytes # (auto) 0.6 10 ^3/uL (0-1.3); Monocytes % (auto) 8.5 % (0.0-12.0); Neutrophils # (auto) 5.2 10 ^3/uL (1.6-8.6); Neutrophils % (auto) 70.1 % (37.0-80.0); Nucleated Red Blood Cells % 0.1 %; Red Cell Distribution Width 15.6 % (11.8-14.3); White Blood Cell 7.5 10^3/uL (4.4-10.8)
[2021-05-25 08:47] LABS: BUN/Creatinine Ratio 10.8; Calcium 8.1 mg/dL (8.5-10.1)
[2021-05-25 09:00] VITALS: BP 127/80
[2021-05-25 09:04] LABS: Hemoglobin 6.9 g/dL (12.2-16.2)
[2021-05-25] MEDS: ERTAPENEM SOD INJ 1 GM in SODIUM CHL 0.9% 50 ML IV SCH (11:04)
[2021-05-25] MEDS: ACETAMINOPHEN 325 MG TAB PO PRN (11:04)
[2021-05-25] MEDS: SODIUM FERR GLUC 62.5MG/5ML 125 MG in SODIUM CHL 0.9% 100 ML IV SCH (12:18)
[2021-05-25 13:00] VITALS: BP 126/84
[2021-05-25] MEDS ORDERED: FER325T PO (13:27)
[2021-05-25] MEDS ORDERED: METOPROLOL TARTRATE 25 MG TAB PO ONE (13:30)
[2021-05-25] MEDS ORDERED: metroNIDAZOLE 500MG/100ML 100 ML IV SCH (14:00)
[2021-05-25 17:02] VITALS: BP 119/78
[2021-05-25 17:28] VITALS: BP 124/67
[2021-05-25] MEDS ORDERED: METOPROLOL TARTRATE 25 MG TAB PO SCH (22:00)
== END 2021-05-25 18:10 | disposition home or self-care (01) | DRG 689 ==
LOC: CENTRAL 12:13
PROVIDERS: ADMIT Internal Medicine; ATTEND Internal Medicine
DX: N39.0 Urinary tract infection, site not specified (principal); N17.0 Acute kidney failure with tubular necrosis; E43 Unspecified severe protein-calorie malnutrition; Z94.0 Kidney transplant status; T86.19 Other complication of kidney transplant; D64.9 Anemia, unspecified; I10 Essential (primary) hypertension; N18.30 Chronic kidney disease, stage 3 unspecified; E03.9 Hypothyroidism, unspecified; Y83.8 Other surgical procedures as the cause of abnormal reaction of the patient, or of later complication, without mention of misadventure at the time of the procedure; N92.0 Excessive and frequent menstruation with regular cycle; Z80.0 Family history of malignant neoplasm of digestive organs; Z80.8 Family history of malignant neoplasm of other organs or systems; Z82.3 Family history of stroke; Z82.49 Family history of ischemic heart disease and other diseases of the circulatory system; Z86.16 Personal history of COVID-19; Z86.19 Personal history of other infectious and parasitic diseases; Z87.440 Personal history of urinary (tract) infections; Z80.9 Family history of malignant neoplasm, unspecified; Y92.098 Other place in other non-institutional residence as the place of occurrence of the external cause; Z20.822 Contact with and (suspected) exposure to COVID-19; Z68.28 Body mass index [BMI] 28.0-28.9, adult
CPT/HCPCS: 36415; 74176; 76775; 80048; 80076; 81001; 83540; 83550; 85025; 85045; 86850; 86900; 86901; 87040; 87086; 87088; 87186; G0378; J1335

== ENCOUNTER → 2021-05-31 | Outpatient (CLI) | payer BC ==
[~2021-05-31] MED LIST changes: +FER325T PO; -FLUC150T38 PO; -LEVO-28 PO; -MET500T PO
[2021-05-31 12:41] LABS: Calcium 8.7 mg/dL (8.5-10.1); Potassium 4.2 mmol/L (3.5-5.1)
[2021-05-31 12:44] LABS: BUN/Creatinine Ratio 14.5; Basophils # (auto) 0 10 ^3/uL (0-0.2); Eosinophils # (auto) 0.2 10 ^3/uL (0-0.8); Hemoglobin 8.6 g/dL (12.2-16.2); Lymphocytes # (auto) 1.4 10 ^3/uL (0.4-5.4); Mean Corpuscular Hemoglobin 27.7 pg (28.0-32.0); Monocytes # (auto) 0.6 10 ^3/uL (0-1.3); Neutrophils # (auto) 3.4 10 ^3/uL (1.6-8.6); Nucleated Red Blood Cells % 0.1 %; White Blood Cell 5.6 10^3/uL (4.4-10.8)
[2021-05-31 12:55] LABS: Basophils % (auto) 0.6 % (0.0-2.0); Eosinophils % (auto) 3.2 % (0.0-7.0); Hematocrit 26.5 % (36.0-46.0); Lymphocytes % (auto) 25.4 % (10.0-50.0); Mean Corpuscular Hgb Conc. 32.3 g/dL (32.0-36.0); Mean Corpuscular Volume 85.7 fL (80.0-100.0); Monocytes % (auto) 11.1 % (0.0-12.0); Neutrophils % (auto) 59.7 % (37.0-80.0)
== END | disposition home or self-care (01) ==
LOC: LAB 09:20
PROVIDERS: ATTEND Internal Medicine
DX: N18.30 Chronic kidney disease, stage 3 unspecified (principal); D50.9 Iron deficiency anemia, unspecified
CPT/HCPCS: 36415; 80048; 85025

== ENCOUNTER → 2021-08-26 | Outpatient (CLI) | payer BC ==
[2021-08-26 11:08] LABS: Basophils # (auto) 0.1 10 ^3/uL (0-0.2); Basophils % (auto) 0.8 % (0.0-2.0); Eosinophils # (auto) 0.2 10 ^3/uL (0-0.8); Eosinophils % (auto) 2.5 % (0.0-7.0); Hematocrit 34.4 % (36.0-46.0); Hemoglobin 11.5 g/dL (12.2-16.2); Lymphocytes # (auto) 1.4 10 ^3/uL (0.4-5.4); Lymphocytes % (auto) 15.4 % (10.0-50.0); Mean Corpuscular Hemoglobin 29.9 pg (28.0-32.0); Mean Corpuscular Hgb Conc. 33.3 g/dL (32.0-36.0); Mean Corpuscular Volume 89.8 fL (80.0-100.0); Monocytes # (auto) 0.7 10 ^3/uL (0-1.3); Monocytes % (auto) 7.8 % (0.0-12.0); Neutrophils # (auto) 6.8 10 ^3/uL (1.6-8.6); Neutrophils % (auto) 73.5 % (37.0-80.0); Nucleated Red Blood Cells % 0.1 %; Red Blood Cells 3.83 10^6/uL (4.0-5.20); Red Cell Distribution Width 14.8 % (11.8-14.3); White Blood Cell 9.2 10^3/uL (4.4-10.8)
[2021-08-26 11:10] LABS: Urine Bacteria NONE SEEN /hpf (None Seen); Urine Blood Negative /uL (Negative); Urine Specific Gravity 1.013 (1.001-1.035); Urine WBC 4 /hpf (0 - 5)
[2021-08-26 12:02] LABS: Albumin 3.5 g/dL (3.4-5.0); BUN/Creatinine Ratio 20.3; Calcium 9.1 mg/dL (8.5-10.1); Potassium 4.6 mmol/L (3.5-5.1)
[2021-08-26 12:07] LABS: Bilirubin, Total 0.3 mg/dL (0.2-1.0); Total Protein 8.5 g/dL (6.4-8.2)
[2021-08-26 16:47] LABS: Folate (Folic Acid) 8.73 ng/mL (5.38-24)
== END | disposition home or self-care (01) ==
LOC: LAB 10:51
PROVIDERS: ATTEND Internal Medicine
DX: I10 Essential (primary) hypertension (principal); N39.0 Urinary tract infection, site not specified; N17.8 Other acute kidney failure; D64.9 Anemia, unspecified
CPT/HCPCS: 36415; 80053; 80061; 81001; 82607; 82746; 84443; 85025

== ENCOUNTER → 2022-05-03 | Outpatient (CLI) | payer BC ==
[2022-05-03 08:20] LABS: Hematocrit 27.6 % (36.0-46.0)
[2022-05-03 08:22] LABS: Hemoglobin 8.5 g/dL (12.2-16.2); Mean Corpuscular Hemoglobin 26.2 pg (28.0-32.0); Mean Corpuscular Hgb Conc. 30.9 g/dL (32.0-36.0); Mean Corpuscular Volume 84.9 fL (80.0-100.0); Red Blood Cells 3.25 10^6/uL (4.0-5.20); Red Cell Distribution Width 14.6 % (11.8-14.3)
[2022-05-03 08:49] LABS: Blast Cells 0; Metamyelocytes % 0; Myelocytes % 0; Promyelocytes % 0
[2022-05-03 08:50] LABS: Urine Bacteria NONE SEEN /hpf (None Seen); Urine Blood Negative /uL (Negative); Urine Specific Gravity 1.014 (1.001-1.035); Urine WBC 1 /hpf (0 - 5)
[2022-05-03 11:28] LABS: Band Neutrophils % (manual) 5; Basophils % (manual) 1 (0.0-2.0); Eosinophils % (manual) 5 (0-7); Lymphocytes % (manual) 18 (10.0-50.0); Monocytes % (manual) 11 (0-12); Reactive Lymphocytes 1
[2022-05-03 17:18] LABS: Albumin 3.7 g/dL (3.4-5.0); Calcium 8.7 mg/dL (8.5-10.1); Potassium 4.1 mmol/L (3.5-5.1)
[2022-05-03 17:20] LABS: Bilirubin, Total 0.3 mg/dL (0.2-1.0); Total Protein 7.9 g/dL (6.4-8.2)
== END | disposition home or self-care (01) ==
LOC: LAB 08:00
PROVIDERS: ATTEND Internal Medicine
DX: I12.9 Hypertensive chronic kidney disease with stage 1 through stage 4 chronic kidney disease, or unspecified chronic kidney disease (principal); N18.30 Chronic kidney disease, stage 3 unspecified; E03.9 Hypothyroidism, unspecified; D50.9 Iron deficiency anemia, unspecified
CPT/HCPCS: 36415; 80053; 80061; 81001; 82306; 84443; 85007; 85027

== ENCOUNTER → 2022-10-04 | Outpatient (CLI) | payer BC ==
[2022-10-04 15:08] LABS: Basophils # (auto) 0.1 10 ^3/uL (0-0.2); Eosinophils # (auto) 0.3 10 ^3/uL (0-0.8); Hemoglobin 8.8 g/dL (12.2-16.2); Neutrophils # (auto) 5.1 10 ^3/uL (1.6-8.6)
[2022-10-04 15:09] LABS: Eosinophils % (auto) 3.3 % (0.0-7.0); Hematocrit 26.8 % (36.0-46.0); Lymphocytes # (auto) 1.4 10 ^3/uL (0.4-5.4); Lymphocytes % (auto) 17.8 % (10.0-50.0); Mean Corpuscular Hemoglobin 26.3 pg (28.0-32.0); Mean Corpuscular Hgb Conc. 32.8 g/dL (32.0-36.0); Mean Corpuscular Volume 80.2 fL (80.0-100.0); Monocytes % (auto) 12.4 % (0.0-12.0); Neutrophils % (auto) 65.5 % (37.0-80.0); Red Blood Cells 3.34 10^6/uL (4.0-5.20); Red Cell Distribution Width 16.9 % (11.8-14.3); White Blood Cell 7.8 10^3/uL (4.4-10.8)
[2022-10-04 15:26] LABS: Urine Bacteria NONE SEEN /hpf (None Seen); Urine Blood Negative /uL (Negative); Urine Specific Gravity 1.018 (1.001-1.035); Urine WBC 1 /hpf (0 - 5)
[2022-10-04 15:50] LABS: Albumin 3.6 g/dL (3.4-5.0); Calcium 7.8 mg/dL (8.5-10.1)
[2022-10-04 15:53] LABS: BUN/Creatinine Ratio 19.3 (10.0-20.0); Bilirubin, Total 0.2 mg/dL (0.2-1.0); Total Protein 7.6 g/dL (6.4-8.2)
== END | disposition home or self-care (01) ==
LOC: LAB 14:52
PROVIDERS: ATTEND Internal Medicine
DX: N18.30 Chronic kidney disease, stage 3 unspecified (principal)
CPT/HCPCS: 36415; 80053; 81001; 84443; 85025

== ENCOUNTER → 2022-10-18 | Outpatient (CLI) | payer BC | END | disposition home or self-care (01) | LOC: US 08:14 → EEVIPCON 08:30 | PROVIDERS: ATTEND Internal Medicine | DX: E04.1 Nontoxic single thyroid nodule (principal) | CPT/HCPCS: 10005; 76536; 76942 ==

== ENCOUNTER → 2022-10-20 | Outpatient (CLI) | payer BC ==
[2022-10-20 13:43] LABS: Urine WBC None Seen /hpf (0 - 5)
[2022-10-20 14:04] LABS: Basophils # (auto) 0 10 ^3/uL (0-0.2); Hemoglobin 8.9 g/dL (12.2-16.2); Mean Corpuscular Hemoglobin 25.7 pg (28.0-32.0); Monocytes # (auto) 0.8 10 ^3/uL (0-1.3)
[2022-10-20 14:06] LABS: Basophils % (auto) 0.7 % (0.0-2.0); Eosinophils # (auto) 0.2 10 ^3/uL (0-0.8); Eosinophils % (auto) 2.9 % (0.0-7.0); Hematocrit 28.2 % (36.0-46.0); Lymphocytes # (auto) 1.6 10 ^3/uL (0.4-5.4); Lymphocytes % (auto) 24.2 % (10.0-50.0); Mean Corpuscular Hgb Conc. 31.7 g/dL (32.0-36.0); Monocytes % (auto) 11.9 % (0.0-12.0); Neutrophils # (auto) 3.9 10 ^3/uL (1.6-8.6); Neutrophils % (auto) 60.3 % (37.0-80.0); Red Blood Cells 3.48 10^6/uL (4.0-5.20); Red Cell Distribution Width 16.5 % (11.8-14.3); White Blood Cell 6.5 10^3/uL (4.4-10.8)
[2022-10-20 14:52] LABS: Urine Bacteria NONE SEEN /hpf (None Seen); Urine Blood Negative /uL (Negative); Urine Mucus FEW (None Seen); Urine Specific Gravity 1.007 (1.001-1.035)
[2022-10-20 15:00] LABS: BUN/Creatinine Ratio 17.5 (10.0-20.0); Calcium 8.2 mg/dL (8.5-10.1); Potassium 3.7 mmol/L (3.5-5.1)
[2022-10-20 15:10] LABS: Free T3 2.56 pg/mL (2.3-4.2); Free T4 (Free Thyroxine) 1.07 ng/dL (0.89-1.76)
== END | disposition home or self-care (01) ==
LOC: LAB 13:36
PROVIDERS: ATTEND Internal Medicine
DX: N18.4 Chronic kidney disease, stage 4 (severe) (principal); D64.9 Anemia, unspecified
CPT/HCPCS: 36415; 80048; 81001; 83036; 84439; 84481; 85025

== ENCOUNTER → 2023-12-06 | Outpatient (CLI) | payer BC ==
[2023-12-06 09:27] LABS: Urine Bacteria None Seen /hpf (None Seen)
[2023-12-06 09:51] LABS: Urine Blood Negative /uL (Negative); Urine Clarity Clear (Clear); Urine Color Colorless (Yellow); Urine Protein, UAD TRACE (Negative); Urine Specific Gravity 1.011 (1.001-1.035); Urine Urobilinogen Normal (Negative); Urine WBC <1 /hpf (0 - 5)
[2023-12-06 09:56] LABS: Basophils # (auto) 0.1 10 ^3/uL (0-0.2); Eosinophils # (auto) 0.2 10 ^3/uL (0-0.8); Hematocrit 25.8 % (36.0-46.0); Lymphocytes # (auto) 1.3 10 ^3/uL (0.4-5.4); Mean Corpuscular Volume 78.4 fL (80.0-100.0); Monocytes # (auto) 0.7 10 ^3/uL (0-1.3); Red Blood Cells 3.29 10^6/uL (4.0-5.20)
[2023-12-06 09:58] LABS: Basophils % (auto) 1.2 % (0.0-2.0); Eosinophils % (auto) 3.3 % (0.0-7.0); Mean Corpuscular Hemoglobin 24.5 pg (28.0-32.0); Mean Corpuscular Hgb Conc. 31.2 g/dL (32.0-36.0); Monocytes % (auto) 11.4 % (0.0-12.0); Neutrophils # (auto) 3.8 10 ^3/uL (1.6-8.6); Neutrophils % (auto) 62.1 % (37.0-80.0); Platelet Count (auto) 327 10^3/uL (140-450); Red Cell Distribution Width 15.7 % (11.8-14.3); White Blood Cell 6.1 10^3/uL (4.4-10.8)
[2023-12-06 10:39] LABS: Alanine Aminotransferase 15 U/L (7-40); Albumin 4.6 g/dL (3.2-4.8); Alkaline Phosphatase 81 U/L (46-116); Anion Gap 7 (5-15); Aspartate Aminotransferase 20 U/L (13-40); BUN/Creatinine Ratio 13.3 (10.0-20.0); Bilirubin, Total 0.4 mg/dL (0.2-1.0); Blood Urea Nitrogen 21 mg/dL (9-23); Calcium 9.2 mg/dL (8.7-10.4); Carbon Dioxide 19 mmol/L (20-30); Chloride 109 mmol/L (98-107); Cholesterol 214 mg/dL (< 200); Glucose 97 mg/dL (74-106); HDL Cholesterol 62 mg/dL (40-59); LDL Cholesterol 133 mg/dL (< 100); Potassium 4.3 mmol/L (3.5-5.1); Sodium 135 mmol/L (136-145); Total Protein 7.7 g/dL (5.7-8.2); Triglycerides 138 mg/dL (< 150)
[2023-12-06 11:10] LABS: Uric Acid 6.7 mg/dL (3.1-7.8)
== END | disposition home or self-care (01) ==
LOC: LAB 09:21
PROVIDERS: ATTEND Internal Medicine
DX: I10 Essential (primary) hypertension (principal); E04.1 Nontoxic single thyroid nodule; M32.9 Systemic lupus erythematosus, unspecified; Z12.11 Encounter for screening for malignant neoplasm of colon
CPT/HCPCS: 36415; 80053; 80061; 81001; 82306; 82607; 84443; 84550; 85025

== ENCOUNTER → 2023-12-12 | Outpatient (CLI) | payer BC | END | disposition home or self-care (01) | LOC: XYW 10:37 | PROVIDERS: ATTEND Internal Medicine | DX: I51.89 Other ill-defined heart diseases (principal); R06.02 Shortness of breath | CPT/HCPCS: 93306 ==